=== PATIENT | female | born 1975 | race Caucasian/White ===

== ENCOUNTER 2021-05-12 16:04 | Outpatient (CLI) | payer OTHER, MEDICAID, SELFPAY ==
--- NOTE | ~2021-05-12 | MR_ITS ---
EXAMINATION: MR lumbar spine wo con DATE: 05/12/2021 17:27 INDICATION: Lumbar spinal stenosis. TECHNIQUE: Magnetic resonance imaging (MRI) of the lumbar spine was performed without intravenous con trast. Sequences included sagittal T2-weighted FSE, sagittal STIR FSE, sagittal T1-weighted FSE, and axial T2-weighted FSE. COMPARISON: None FINDINGS: Bone alignment is normal. Vertebral body heights are normal. There is mildly decreased disc height at L3-L4 and L4-L5 with endplate remodeling. There is metal artifact in the pelvis from instr umentation. The distal spinal cord signal intensity is normal. The conus medullaris is at L1. The fol lowing disc levels are specifically discussed: L1-L2: The disc does not extend beyond the endplate margin. There is mild bilateral facet joint osteo arthritis. There is no neural foraminal stenosis. There is no central canal stenosis. L2-L3: The disc is mildly bulging. There is mild bilateral facet joint osteoarthritis. There is mild bilateral neural foraminal stenosis. There is no central canal stenosis. L3-L4: The disc is bulging and has an annular fissure. There is mild bilateral facet joint osteoarthr itis. There is mild bilateral neural foraminal stenosis. There is no central canal stenosis. L4-L5: The disc is bulging. There is moderate bilateral facet joint osteoarthritis. There is moderate bilateral neural foraminal stenosis. There is mild central canal stenosis. L5-S1: The disc does not extend beyond the endplate margin. There is severe right and moderate left f acet joint osteoarthritis. There is mild bilateral neural foraminal stenosis. There is no central can al stenosis. IMPRESSION: 1. Moderate lumbar spondylosis. Reviewed, dictated and finalized at location A.
--- NOTE | ~2021-05-12 | XR_ITS ---
EXAMINATION: XR hip LT min 2V DATE: 05/12/2021 17:44 INDICATION: Left hip pain. TECHNIQUE: 3 views of left hip were obtained. COMPARISON: Sacroiliac joint radiographs 01/19/2017 FINDINGS: Bone alignment is normal. There is an old healed fracture deformity of left innominate bone . There is plate and screw fixation of left iliac wing. There is screw fixation of left acetabulum. T here is screw fixation of right sacroiliac joint. No acute fracture. There is advanced left hip osteo arthritis. There is an intrauterine device in expected position. IMPRESSION: 1. Advanced posttraumatic left hip osteoarthritis. Reviewed, dictated and finalized at location A.
== END 2021-05-12 16:05 | disposition home or self-care (01) ==
PROVIDERS: PCP Internal Medicine; Visit Provider Physical Medicine & Rehabilitation Pain Medicine
DX: M48.061 Spinal stenosis, lumbar region without neurogenic claudication (principal); M47.896 Other spondylosis, lumbar region; M16.12 Unilateral primary osteoarthritis, left hip
CPT/HCPCS: 72148; 73502

== ENCOUNTER 2022-02-04 15:04 | Outpatient (CLI) | payer MEDICARE, MEDICAID, SELFPAY ==
--- NOTE | ~2022-02-04 | XR_ITS ---
EXAMINATION: XR knee LT min 4V, XR knee RT min 4V DATE: 02/04/2022 15:59 INDICATION: Bilateral knee pain with standing and right knee popping. TECHNIQUE: 1. Anteroposterior, 2 oblique and crosstable lateral views of the left knee were obtained. 2. Anteroposterior, 2 oblique and crosstable lateral views of the right knee were obtained. COMPARISON: 12/14/2017 FINDINGS: Alignment is normal at both knees. No fracture. Small to moderate size marginal osteophytes in all 3 compartments of both knees. No evident joint space narrowing although this could be underestimated o n nonweightbearing imaging. No knee joint effusions. Marked asymmetry to the soft tissues at both kne es and proximal calves with morbid obesity with large amount of subcutaneous fat on the left but rela tive paucity of fat on the right with numerous surgical clips suggesting there is related to old trau ma. Prominent heterotopic ossification along the left medial collateral ligament from its femoral joe gin the level of the joint line likely sequela of chronic sprain. IMPRESSION: 1. At least mild tricompartmental osteoarthritis at both knees. No acute osseous abnormality. 2. Renee-Stieda lesion along the proximal left medial collateral ligament consistent with sequel a of chronic sprain. 3. Postoperative changes with multiple surgical clips and prominent asymmetric loss of subcutaneous f at about the right knee and proximal calf likely sequela of old trauma. Correlate with clinical/surgi debbie history. Reviewed, dictated and finalized at location B. IMPRESSION: 1. At least mild tricompartmental osteoarthritis at both knees. No acute osseou s abnormality. 2. Renee-Stieda lesion along the proximal left medial collateral ligament consistent with sequela of chronic sprain. 3. Postoperative changes with multiple surgical clips and prominent asymmetric loss of subcutaneous fat about the right knee and proximal calf likely sequela of old trauma. Correlate with clinical/surgical history.
== END 2022-02-04 15:05 | disposition home or self-care (01) ==
PROVIDERS: PCP Internal Medicine; Visit Provider Physical Medicine & Rehabilitation
DX: M17.0 Bilateral primary osteoarthritis of knee (principal); M76.42 Tibial collateral bursitis [Pellegrini-Stieda], left leg; Z98.890 Other specified postprocedural states
CPT/HCPCS: 73564

== ENCOUNTER → 2023-07-08 11:12 | Outpatient (CLI) | payer MEDICARE, MEDICAID, SELFPAY ==
--- NOTE | ~2023-07-08 | US_ITS ---
EXAMINATION: US pelvic complete w TV DATE: 07/08/2023 12:00 INDICATION: Postmenopausal bleeding Comparison:No prior studies for comparison. TECHNIQUE: Multiple transabdominal and endovaginal sonographic images of the pelvis performed. FINDINGS: The uterus measures 6.9 x 4.5 x 4.9 cm. The endometrial complex measures 1 cm. The right ovary measures 2.4 x 1.7 x 2 cm with normal Doppler signal. Left ovary is not visualized. There is no free fluid in the pelvis. There are no abnormal masses seen on either side. IMPRESSION: 1. Thickened endomtrial complex. The differential diagnosis includes endometrial hyperplasia, polyp a nd carcinoma. Biopsy is recommended. Reviewed, dictated and finalized at location B. IMPRESSION: 1. Thickened endomtrial complex. The differential diagnosis includes endometria l hyperplasia, polyp and carcinoma. Biopsy is recommended.
== END ==
PROVIDERS: Visit Provider Obstetrics & Gynecology
DX: N95.0 Postmenopausal bleeding (principal); N85.00 Endometrial hyperplasia, unspecified
CPT/HCPCS: 76830; 76856

== ENCOUNTER 2023-08-08 10:42 | Outpatient (CLI) | payer MEDICARE, MEDICAID, SELFPAY ==
[2023-08-08 11:31] LABS: Hematocrit 38.6 % (37.0-47.0); Hemoglobin 12.4 g/dL (12.0-15.0); Mean Corpuscular HGB Conc 32.1 g/dl (32-36); Mean Corpuscular Hemoglobin 30.2 pg (26-34); Mean Corpuscular Volume 93.9 fl (80-100); Mean Platelet Volume 12.5 fl (7.4-10.4); Platelet Count Result 279 k/mm3 (150-375); Red Blood Count 4.11 M/mm3 (4.2-5.4); Red Cell Distribution Width 14.5 % (11.5-14.5); White Blood Count 6.5 K/mm3 (4.5-10.0)
[2023-08-08 11:45] LABS: Anion Gap 5 mmol/L (8-16); Blood Urea Nitrogen 20 mg/dL (7-17); Calcium 8.8 mg/dL (8.4-10.2); Carbon Dioxide 28 mmol/L (22-30); Chloride 106 mmol/L (98-107); Estimated Glomerular Filt Rate 53; Glucose 82 mg/dL (65-110); Potassium 3.7 mmol/L (3.4-5.0); Sodium 139 mmol/L (137-145)
== END 2023-08-08 10:43 | disposition home or self-care (01) ==
LOC: ANHSURGERY 10:48
PROVIDERS: Anesthesiology; Visit Provider Obstetrics & Gynecology
DX: N93.9 Abnormal uterine and vaginal bleeding, unspecified (principal); Z79.899 Other long term (current) drug therapy
CPT/HCPCS: 36415; 80048; 85027

== ENCOUNTER 2023-08-11 02:49 | Day surgery (SDC) | payer MEDICARE, MEDICAID, SELFPAY ==
--- NOTE | 2023-08-02 10:18 | SUR.PREOP ---
Report to the Outpatient Waiting Room, entrance under the green pavilion located off [facility], at time 0700 on date 08/11/23. Planned Procedure Time: 0900. Time changes happen often and if your time is changed the preop area will call you the afternoon before. - You and your visitor will be asked to self-screen and do not enter if you have any COVID symptoms. - A mask is optional within the hospital at this time. Patients may have clear liquids (water, carbonated beverages, clear teas, apple juice) until 3 hours prior to surgery with a maximum of 20 ounces. - NO CLEAR LIQUIDS AFTER 0600 - No food from midnight until time of surgery - Infants may have breast milk until 4 hours before surgery, infant formula 6 hours prior to surgery. - Children will be allowed to drink immediately following surgery. If applicable, please bring a bottle or sippy cup to assist with drinking. Juice, water, soda, and popsicles are readily available. For infants on formula, please bring formula the day of surgery. Pacifiers are allowed. Take the following medications with a SIP of water the morning of surgery: HYDROCODONE/ACETAMINOPHEN, LEVOTHYROXINE, PREGABALIN, TIZANIDINE, BRING YOUR ALBUTEROL INHALER WITH YOU THE DAY OF YOUR SURGERY DO NOT STOP ANY OF YOUR OTHER PRESCRIPTION MEDICATIONS PRIOR TO SURGERY ?EXCEPT THE FOLLOWING Medications to discontinue per physician CALL DR STINSON'S OFFICE IN REGARDS TO STOPPING ASPIRIN Please no make-up, nail urdu, hairspray, perfume, deodorant, or body powder the day of surgery. No jewelry (including any body piercings) or valuables the day of surgery, leave them at home. Please take a shower or bath the night before, or the morning of, surgery with an antibacterial soap. Wear comfortable, loose fitting clothing. Children are encouraged to wear pajamas. - Jewelry must be removed prior to entering the operating room. Rings and piercings that are not removed may be cut off. - The hospital will not accept responsibility for valuables. - Please leave all valuables, including medications, at home the day of surgery. If you are going home after surgery, a licensed compressed air pile driver operator must drive you home. - NO public transportation without another adult if you receive anesthesia. - We recommend that an adult stay with you for 24 hours following discharge. - We also recommend that you do not drive, make important decision, drink alcoholic beverages, or take any drugs that were not prescribed by your health care provider for at least 24 hours after your discharge time. For Pediatric surgeries, we recommend two adults accompany the child home. Follow any additional instructions given to you from your surgeon. If you or anyone in your household have experienced Covid symptoms in the past week, please notify your surgeon or the nurse liaison at the phone number below for possible testing. Telephone instructions given to CARMEN CATES and asked if any additional questions and then verbalized understanding. Patient advised to call surgeon office or pre surgery nurse liaison [phone] if any additional questions.
[2023-08-02 10:40] VITALS: BMI 38.7
--- NOTE | 2023-08-10 11:25 | PM.IMHP ---
H&P: HPI History of Present Illness Date/Time: 08/10/23 11:25 47-year-old female presents for evaluation of irregular vaginal bleeding. Had an IUD removed in March, after that began to experience vaginal bleeding. FSH and estradiol showed not definitively menopausal and ultrasound with thickened endometrial cavity in June. Has continuous some bleeding therefore she presents for hysteroscopy uterine curettings. Chief Complaint: Irregular bleeding Review of Systems Review of Systems: All systems reviewed & are unremarkable except as noted in HPI and below PMFSH Past Medical History Medical History Anxiety Arthritis of left knee delivery delivered 1998, 2007 Colonoscopy planned 2021 Encounter for removal of intrauterine contraceptive device Heart burn Hypertension Sacroiliac dysfunction Surgical History Surgical History Gastric bypass status for obesity (~09/2021) H/O gynecological procedure (~03/05/10) Mirena IUD insertion 2009 Mirena IUD removal 2022 H/O skin graft R leg 2014 Family History Family History Father Hypertension Family history of diabetes mellitus in first degree relative Diabetes mellitus Mother Family history of allergic disorder Social History Social History Smoking packs per day: 0.5 Smoking cigarettes per day: 10.0 Years smoked: 15 Smoking pack-years: 7.50 Smoking status: Former smoker Second hand tobacco smoke exposure: No Smoking end date: 09/12/14 Alcohol intake: never Substance use: never Last use: 09/12/2014 Lack of Transportation: No Lack of Food: Sometimes True Current Housing: I Have Housing Concerned About Future Housing: No Difficulty Paying Gas/Electric Bills: YES Difficulty Paying for Meds: No Currently Unemployed: Decline to Answer Education: Associate Degree Difficulty w/ Childcare or Family Care: No Living arrangements: with family Additional living arrangements comments: live with daughter Occupation/Education: unemployed Additional occupation/education comments: disability Gender identity (if verbalized by the patient): Female Sexual Orientation (if Verbalized by the Patient): Straight or Heterosexual Spiritual care concerns: No Meds Home Medications and Allergies Home Medications Medication Instructions Recorded Confirmed Type albuterol sulfate 90 mcg/actuation 2 puff inhalation PRN PRN WHEEZE 03/29/23 08/02/23 History aerosol inhaler aspirin 81 mg tablet,delayed 81 mg PO DAILY 03/29/23 08/02/23 History release fluticasone propionate 50 1 spray intranasal DAILY 03/29/23 08/02/23 History mcg/actuation nasal spray,suspension furosemide 40 mg tablet 40 mg PO QAM 03/29/23 08/02/23 History hydrocodone 10 mg-acetaminophen 1 tablet PO Q4-6H PRN Pain 03/29/23 08/02/23 History 325 mg tablet levothyroxine 75 mcg tablet 75 mcg PO DAILY 03/29/23 08/02/23 History montelukast 10 mg tablet 10 mg PO DAILY 03/29/23 08/02/23 History pregabalin 200 mg capsule 200 mg PO TID 03/29/23 08/02/23 History ropinirole 1 mg tablet 1 mg PO HS 03/29/23 08/02/23 History tizanidine 4 mg tablet 12 mg PO TID 03/29/23 08/02/23 History Allergies Allergy/AdvReac Type Severity Reaction Status Date / Time iodine Allergy Severe Anaphylaxis Verified 08/02/23 09:52 ceftriaxone [From Rocephin] Allergy Intermediate Rash Verified 08/02/23 09:52 nitrofurantoin Allergy Intermediate Rash Verified 08/02/23 09:52 Sulfa (Sulfonamide Allergy Intermediate Rash Verified 08/02/23 09:52 Antibiotics) perflutren lipid microspheres Allergy Severe syncope Uncoded 08/02/23 09:52 Exam Const: General: cooperative and healthy appearing Resp: Effort & Inspection: normal respiratory effort Aus
--- NOTE | 2023-08-11 07:25 | WPDHPUPDATE1 ---
History and Physical Update Update Date/Time: 08/11/23 07:25 History and Physical has been reviewed, including an updated exam of the patient. There are NO changes in the patient's condition. Risks, benefits, and alternatives have been discussed and questions answered. Patient agrees to proceed with procedure.
[2023-08-11 07:55] VITALS: BP 105/54; PULSE 74; RESP 20; TEMP 36.7; O2SAT 98
[2023-08-11] MEDS: LACTATED RINGERS 1,000 ML 30 ML IV CONT (08:55)
--- NOTE | 2023-08-11 09:23 | WPDANESEPPF ---
Anes - Initial Pre Proc Eval Procedure: Operation Date: 08/11/23 09:45 Proposed Procedures p Hysteroscopy Dilation and Curettage - Rajesh Dunbar MD Date/Time: 08/11/23 09:23 Surgeon: Rajesh Dunbar MD Pre Op Diagnosis: abnomal uterine bleeding Patient Data Age: 47 Gender: F Height: 1.66 m Weight: 107 kg Last Vital Signs Temp 36.7 C 08/11/23 07:55 Pulse 74 08/11/23 07:55 Resp 20 08/11/23 07:55 BP 105/54 L 08/11/23 07:55 Pulse Ox 98 08/11/23 07:55 O2 Del Method Room Air 08/11/23 07:55 Allergies Allergy/AdvReac Type Severity Reaction Status Date / Time Iodinated Contrast Media Allergy Severe Anaphylaxis Verified 08/11/23 08:04 ceftriaxone [From Rocephin] Allergy Intermediate Rash Verified 08/02/23 09:52 nitrofurantoin Allergy Intermediate Rash Verified 08/02/23 09:52 Sulfa (Sulfonamide Allergy Intermediate Rash Verified 08/02/23 09:52 Antibiotics) perflutren lipid microspheres Allergy Severe syncope Uncoded 08/02/23 09:52 Home Medications Medication Instructions Recorded Confirmed Type albuterol sulfate 90 mcg/actuation 2 puff inhalation PRN PRN WHEEZE 03/29/23 08/11/23 History aerosol inhaler aspirin 81 mg tablet,delayed 81 mg PO DAILY 03/29/23 08/11/23 History release fluticasone propionate 50 1 spray intranasal DAILY 03/29/23 08/11/23 History mcg/actuation nasal spray,suspension furosemide 40 mg tablet 40 mg PO QAM 03/29/23 08/11/23 History hydrocodone 10 mg-acetaminophen 1 tablet PO Q4-6H PRN Pain 03/29/23 08/11/23 History 325 mg tablet levothyroxine 75 mcg tablet 75 mcg PO DAILY 03/29/23 08/11/23 History montelukast 10 mg tablet 10 mg PO DAILY 03/29/23 08/11/23 History pregabalin 200 mg capsule 200 mg PO TID 03/29/23 08/11/23 History ropinirole 1 mg tablet 1 mg PO HS 03/29/23 08/11/23 History tizanidine 4 mg tablet 12 mg PO TID 03/29/23 08/11/23 History Patient hx anesthesia problems: none Family hx anesthesia problems: none Results Review: All pre-operative results and documents have been reviewed as part of the pre-operative evaluation. [facility] Past Medical History Medical History Anxiety Arthritis of left knee delivery delivered 1998, 2007 Colonoscopy planned 2021 Encounter for removal of intrauterine contraceptive device Heart burn Hypertension Sacroiliac dysfunction Surgical History Surgical History Gastric bypass status for obesity (~09/2021) H/O gynecological procedure (~03/05/10) Mirena IUD insertion 2009 Mirena IUD removal 2022 H/O skin graft R leg 2014 Family History Family History Father Hypertension Family history of diabetes mellitus in first degree relative Diabetes mellitus Mother Family history of allergic disorder Social History Social History Smoking packs per day: 0.5 Smoking cigarettes per day: 10.0 Years smoked: 15 Smoking pack-years: 7.50 Smoking status: Former smoker Second hand tobacco smoke exposure: No Smoking end date: 09/12/14 Alcohol intake: never Substance use: never Last use: 09/12/2014 Lack of Transportation: No Lack of Food: Sometimes True Current Housing: I Have Housing Concerned About Future Housing: No Difficulty Paying Gas/Electric Bills: YES Difficulty Paying for Meds: No Currently Unemployed: Decline to Answer Education: Associate Degree Difficulty w/ Childcare or Family Care: No Living arrangements: with family Additional living arrangements comments: live with daughter Occupation/Education: unemployed Additional occupation/education comments: disability Gender identity (if verbalized by the patient): Female Sexual Orientation (if Verbalized by the Patient): Straight or Heterosexual Sp
--- NOTE | 2023-08-11 09:56 | W.PM.PROC2 ---
Procedure Note - Detailed Date of Procedure 08/11/23 Pre-op Diagnosis abnomal uterine bleeding Post-op Diagnosis Same Procedure Performed 1. Hysteroscopy with uterine curettings Surgeon Rajesh Dunbar MD Anesthesia MAC Findings Mildly thickened endometrial cavity, no hypervascularity, no polyps or fibroids. Description of Procedure Patient prepped and draped usual manner for this procedure. Cervix was dilated to allow the hysteroscope be placed which revealed findings as above. Curettings were obtained with no significant abnormality and minimal tissue noted. There was no significant bleeding at this point the procedure was considered terminated. Estimated Blood Loss 10 Drains No Packing No Pathology Yes Complications No immediate complications Condition Stable Disposition PACU [facility] Billing Surgery - Charge Forward: Surgery Billing
[2023-08-11 10:02] VITALS: BP 99/52; PULSE 71; RESP 14; O2SAT 96
[2023-08-11 10:30] VITALS: BP 106/60; RESP 20
[2023-08-11 11:00] VITALS: BP 104/60; PULSE 60; RESP 20
== END 2023-08-11 11:15 | disposition home or self-care (01) ==
PROVIDERS: Visit Provider Obstetrics & Gynecology
PROC: 0U5B8ZZ Destruction of Endometrium, Via Natural or Artificial Opening Endoscopic (ICD-10-PCS; CPT 58563; principal; 2023-08-11 09:45)
DX: N93.9 Abnormal uterine and vaginal bleeding, unspecified (principal); I10 Essential (primary) hypertension; Z79.51 Long term (current) use of inhaled steroids; Z79.82 Long term (current) use of aspirin; Z98.84 Bariatric surgery status; Z87.891 Personal history of nicotine dependence; E66.9 Obesity, unspecified; Z68.38 Body mass index [BMI] 38.0-38.9, adult
CPT/HCPCS: 58558; 88305; J2250; J2405; J2704; J3010; J7120

== ENCOUNTER 2023-09-29 16:52 | Outpatient (CLI) | payer MEDICARE, MEDICAID, SELFPAY ==
--- NOTE | ~2023-09-29 | MR_ITS ---
EXAMINATION: MR lumbar spine wo con DATE: 09/29/2023 18:17 INDICATION: Lumbar radiculopathy TECHNIQUE: Magnetic resonance imaging (MRI) of the lumbar spine was performed without intravenous con trast. Sequences included sagittal T2-weighted FSE, sagittal T2-weighted FS FSE, sagittal T1-weighted FSE, sagittal fluid sensitive FSE STIR and axial T2-weighted FSE. COMPARISON: Lumbar spine MR dated 05/12/2021 and left hip radiographs dated 05/12/2021 FINDINGS: There is metallic magnetic field artifact associated with a screw spanning the right sacroiliac joint and with plain screw fixation along the visualized medial portion of the left innominate bone. Align ment of the lumbar spine is normal.. Vertebral body heights are normal. Normal marrow signal. Mild d isc height loss at L2-L3 and L5-S1 and mild to moderate disc height loss at L3-L4 and L4-L5. The conu s medullaris terminates at L1. There is normal signal in the caudal spinal cord. There is increasing asymmetric atrophy of the right psoas muscle relative to the left. The following disc levels are spec ifically discussed: T12-L1: The disc does not extend beyond the endplate margin. There is mild bilateral facet joint oste oarthritis. There is no neural foraminal stenosis. There is no central canal stenosis. L1-L2: Disc is mildly bulging. There is mild bilateral facet joint osteoarthritis. There is no neural foraminal stenosis. There is no central canal stenosis. L2-L3: Disc is mildly bulging. There is mild bilateral facet joint osteoarthritis. There is mild bila teral neural foraminal stenosis. There is mild central canal stenosis. L3-L4: Disc is mildly bulging with superimposed left foraminal zone annular fissure. There is mild bi lateral facet joint osteoarthritis. There is mild bilateral neural foraminal stenosis. There is mild central canal stenosis. L4-L5: Disc is bulging. There is moderate bilateral facet joint osteoarthritis. There is moderate paula ateral neural foraminal stenosis. There is mild central canal stenosis. L5-S1: Disc is mildly bulging. There is severe right and moderate left facet joint osteoarthritis. Th ere is mild bilateral neural foraminal stenosis. There is no central canal stenosis. IMPRESSION: 1. Slight interval progression in moderate lumbar spondylosis. 2. Asymmetric muscular atrophy of the right psoas muscle. Reviewed, dictated and finalized at location A. [employer]
== END 2023-09-29 16:53 | disposition home or self-care (01) ==
PROVIDERS: Visit Provider Physical Medicine & Rehabilitation
DX: M47.26 Other spondylosis with radiculopathy, lumbar region (principal)
CPT/HCPCS: 72148

== ENCOUNTER 2024-01-09 15:43 | Outpatient (CLI) | payer MEDICARE, MEDICAID, SELFPAY ==
--- NOTE | ~2024-01-09 | XR_ITS ---
EXAM: XR pelvis min 3V DATE: 01/09/2024 16:36 HISTORY: SACROLITIITIS, HX OF SEVERE PELVIC FX AND SURG . COMPARISON: 05/12/2021 and 01/19/2017. FINDINGS: Decreased mineralization. Screw and plate fixation of the left iliac bone. Screw fixation of the left acetabulum acetabulum. Screw fixation of the right sacroiliac joint. Normal left SI joint . Stable gastric in the left ischial trochanter. Severe bilateral degenerative change in the hips, gr eater on the left. IMPRESSION: Status post hardware fusion of the right SI joint. Normal left SI joint. Extensive lung, located appearing pelvic hardware. Severe bilateral hip osteoarthritis, worse on the left. Reviewed, dictated and finalized at location K. IMPRESSION: Status post hardware fusion of the right SI joint. Normal left SI j oint. Extensive lung, located appearing pelvic hardware. Severe bilateral hip o steoarthritis, worse on the left.
--- NOTE | ~2024-01-09 | CT_ITS ---
EXAMINATION: CT thoracic spine wo con DATE: 01/09/2024 16:22 INDICATION: Lead placement. TECHNIQUE: Computed tomography (CT) of the thoracic spine was performed without intravenous contrast. Automated exposure control and iterative reconstruction technique were employed. The dose-length pro duct was 779.86 mGy-cm. COMPARISON: None FINDINGS: There are surgical changes of the stomach. There is a small sliding hiatal hernia. There is 3 degrees levocurvature of the upper thoracic spine. Vertebral body heights are normal. There is mil dly decreased disc height at T3-T4, moderately decreased disc height from T4-T5 through T6-T7, and mi ldly decreased disc height from T7-T8 through T10-T11. There is multilevel lidg-bb-jpivjscy facet emili nt osteoarthritis. There is severe facet joint osteoarthritis on the left at T2-T3. On the left, ther e is mild neural foraminal stenosis at T2-T3. There is no central canal stenosis. IMPRESSION: 1. Moderate thoracic spondylosis. Reviewed, dictated and finalized at location A.
== END 2024-01-09 15:44 | disposition home or self-care (01) ==
PROVIDERS: Visit Provider Physical Medicine & Rehabilitation Pain Medicine
DX: M46.1 Sacroiliitis, not elsewhere classified (principal); M54.50 Low back pain, unspecified; M47.894 Other spondylosis, thoracic region; Z98.1 Arthrodesis status
CPT/HCPCS: 72128; 72190

== ENCOUNTER 2024-01-26 11:34 | Outpatient (CLI) | payer MEDICARE, MEDICAID, SELFPAY ==
--- NOTE | ~2024-01-26 | CT_ITS ---
EXAMINATION: CT pelvis wo con DATE: 01/26/2024 12:10 INDICATION: Sacroiliitis, not elsewhere classified. TECHNIQUE: Computed tomography (CT) of the pelvis was performed without intravenous contrast. Automat ed exposure control and iterative reconstruction technique were employed. The dose-length product was 818.27 mGy-cm. COMPARISON: Pelvis radiograph 01/09/2024 FINDINGS: There are old fractures of the right L5 transverse process, left pelvic bones, and sacrum. There is fixation of left ilium with plates and screws. There are changes of arthrodesis procedure of right sacroiliac joint with a lag screw. There is bridging ossification at the sacroiliac joints. Th ere is advanced osteoarthritis of the hip joints. Osteitis pubis is noted. No acute fracture. IMPRESSION: 1. Ankylosis of the sacroiliac joints. 2. Advanced osteoarthritis of the hips. Reviewed, dictated and finalized at location E.
== END 2024-01-26 11:35 | disposition home or self-care (01) ==
PROVIDERS: Visit Provider Physical Medicine & Rehabilitation Pain Medicine
DX: M46.1 Sacroiliitis, not elsewhere classified (principal)
CPT/HCPCS: 72192

== ENCOUNTER 2024-03-26 15:02 | Outpatient (CLI) | payer MEDICARE, MEDICAID, SELFPAY ==
--- NOTE | ~2024-03-26 | XR_ITS ---
EXAM: XR shoulder LT min 2V DATE: 03/26/2024 15:33 HISTORY: SHOULDER PAIN, LT . COMPARISON: None available. FINDINGS: Normal mineralization. No fracture or dislocation. No lytic or blastic lesion. Moderate de generative change at the AC joint and glenohumeral joint. No erosion or periosteal change. Soft tissu es within normal limits. 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 Reviewed, dictated and finalized at location K.
--- NOTE | ~2024-03-26 | XR_ITS ---
EXAM: XR shoulder RT min 2V DATE: 03/26/2024 15:33 HISTORY: SHOULDER PAIN, RT . COMPARISON: None available. FINDINGS: Normal mineralization. No fracture or dislocation. No lytic or blastic lesion. Mild degene rative change at the AC joint and glenohumeral joint. No erosion or periosteal change. Soft tissues w ithin normal limits. IMPRESSION: Mild polyarticular osteoarthritis of the right shoulder. Reviewed, dictated and finalized at location K.
== END 2024-03-26 15:03 | disposition home or self-care (01) ==
LOC: ANHIMG 15:08
PROVIDERS: Visit Provider Physical Medicine & Rehabilitation Pain Medicine
DX: M19.012 Primary osteoarthritis, left shoulder (principal); M19.011 Primary osteoarthritis, right shoulder
CPT/HCPCS: 73030

== ENCOUNTER 2024-06-11 12:16 | Outpatient (CLI) | payer MEDICARE, MEDICAID, SELFPAY ==
--- NOTE | ~2024-06-11 | XR_ITS ---
Right Knee Technique: AP, lateral, and sunrise views were obtained. Clinical History: Pain Findings: No fracture or dislocation is seen. Osseous alignment is anatomic. Mild degenerative spurri ng noted. Probable lateral compartment narrowing. Soft tissues are unremarkable. No joint effusion is seen. Impression: Degenerative change, as above. Reviewed, dictated and finalized at location . Impression: Degenerative change, as above.
--- NOTE | ~2024-06-11 | XR_ITS ---
Left Knee Technique: AP, lateral, and sunrise views were obtained. Clinical History: Pain COMPARISON: 02/04/2022 Findings: No fracture or dislocation is seen. Osseous alignment is anatomic. Joint spaces are preserv ed without degenerative or erosive change. Chronic heterotopic ossification along the medial aspect o f the distal femur extending towards the joint line is present. Possible bone infarct of the distal f emur. No joint effusion is seen. Impression: No acute abnormality. Stable chronic heterotopic ossification along the medial femoral condyle extending to the medial join t line. Possible bone infarct of the distal femur. Reviewed, dictated and finalized at location . Impression: No acute abnormality. Stable chronic heterotopic ossification along the medial femoral condyle extend ing to the medial joint line. Possible bone infarct of the distal femur.
== END 2024-06-11 12:17 | disposition home or self-care (01) ==
PROVIDERS: Visit Provider Physical Medicine & Rehabilitation Pain Medicine
DX: M17.11 Unilateral primary osteoarthritis, right knee (principal); G89.29 Other chronic pain
CPT/HCPCS: 73564

== ENCOUNTER 2024-09-24 09:15 | Inpatient (IN) | payer MEDICARE, MEDICAID, SELFPAY ==
[2024-09-24] VITALS (19 sets, daily range): BP systolic 71–130; BP diastolic 52–75; PULSE 73–127; RESP 13–24; TEMP 36.8; O2SAT 85–98; BMI 36.7
--- NOTE | ~2024-09-24 | XR_ITS ---
XR chest 1V Ordering provider: Dhiraj Burroughs MD History: 48 years Female with . weakness . Comparison: June 10, 2012 FINDINGS: MEDIASTINUM: The cardiac silhouette is not enlarged. LUNGS: No effusions or pneumothorax. Opacification in the right lower lobe suggestive OTHER: No free air under the diaphragm. IMPRESSION: Right lower lobe pneumonia. Reviewed, dictated and finalized at location A. RATORY SECRETARY IMPRESSION: Right lower lobe pneumonia.
--- NOTE | ~2024-09-24 | US_ITS ---
EXAMINATION: US venous doppler [facility] DATE: 09/24/2024 22:59 INDICATION: Left leg pain and induration TECHNIQUE: Grayscale ultrasound images without and with compression and Doppler ultrasound images of the left lower extremity veins were obtained. COMPARISON: None. FINDINGS: The visualized portions of left common femoral vein, profunda (deep) femoral vein, femoral vein and g reater saphenous vein outflow are patent. The popliteal vein, peroneal vein, posterior tibial vein and gastrocnemius vein were not visualized s econdary to significant edema and induration IMPRESSION: No deep venous thrombosis within the left common femoral, profunda femoral and femoral veins, as deta iled above. Limited evaluation below the knee secondary to significant induration and soft tissue swelling. Reviewed, dictated and finalized at location A. FURNISHINGS SALES REPRESENTATIVE IMPRESSION: No deep venous thrombosis within the left common femoral, profunda femoral and femoral veins, as detailed above. Limited evaluation below the knee secondary to significant induration and soft tissue swelling.
--- NOTE | ~2024-09-24 | CT_ITS ---
EXAMINATION: CT brain wo con DATE: 09/24/2024 10:55 INDICATION: Confusion TECHNIQUE: Computed tomography (CT) of the head was performed without intravenous contrast. Sagittal and coronal reconstructions were performed. The mA was adjusted according to patient size. Iterative reconstruction technique was employed. The dose-length product was 605.33 mGy-cm. COMPARISON: Sinus CT dated 09/14/2013 FINDINGS: No acute intracranial hemorrhage, acute infarction or abnormal extra axial fluid collection. Ventricl es are normal and symmetric. No mass/mass effect. There is essentially complete opacification of the visualized portions of the right maxillary sinus which demonstrates thickened sclerotic roca consist ent with chronic sinusitis. The orbits and mastoid air cells are normal. 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 IMPRESSION: 1. No acute intracranial process. 2. Chronic right maxillary sinusitis. Reviewed, dictated and finalized at location B. IT ANALYSIS MANAGER
--- NOTE | ~2024-09-24 | US_ITS ---
EXAM: ABDOMEN ULTRASOUND HISTORY: elevated LFTs COMPARISON: None FINDINGS: LIVER: The liver is increased in echogenicity and size measuring 20 cm in longitudinal dimension. The portal vein is patent demonstrating hepatopedal flow GALLBLADDER: The gallbladder is surgically absent. BILE DUCTS: Common bile duct measures anywhere from 5 to 8 cm. PANCREAS: Limited evaluation of the pancreas secondary to overlying bowel gas IMPRESSION: Fatty infiltration of an enlarged liver. Postoperative dilatation of the common bile duct, not unexpected, as detailed above Reviewed, dictated and finalized at location A. STAMPER IMPRESSION: Fatty infiltration of an enlarged liver. Postoperative dilatation of the common bile duct, not unexpected, as detailed a kalyn
--- NOTE | 2024-09-24 09:19 | ECG_ITS ---
Test Date: 2024-09-24 09:23:00 Measurements Intervals [place] Rate: 109 P: 151 IN: 154 QRS: 109 QRSD: 103 T: 150 QT: 331 QTc: 447 Interpretive Statements SINUS TACHYCARDIA MARKED RIGHT AXIS DEVIATION [QRS AXIS > 100] LOW QRS VOLTAGE IN EXTREMITY LEADS [QRS DEFLECTION < 0.5 mV IN LIMB LEADS] No previous ECG available for comparison Electronically Signed On 09-24-2024 21:51:07 [employer] by Stephany Vazquez M.D.
--- NOTE | 2024-09-24 09:24 | PC.NURSE ---
Patient 85% on RA. patient states she does not feel SOB and does not wear oxygen at home. patient placed on 3L NC.
--- NOTE | 2024-09-24 10:17 | ED.WEAKNESS ---
HPI - Weakness General Chief complaint: Weakness Stated complaint: weakness Time Seen by Provider: 09/24/24 10:15 Source: patient Mode of arrival: EMS Limitations: no limitations History of Present Illness HPI Narrative: 48 YEARS OLD WHITE FEMALE CAME TO THE ED FROM HOME BY AMBULANCE BECAUSE OF FEELING WEAK ALL OVER TODAY. UNABLE TO STAND UP OR WALK BECAUSE OF THE WEAKNESS. PATIENT SCHEDULED TO BE SEEN BY SPINE SURGEON TODAY FOR BACK STIMULATOR AT [place], COULD NOT MAKE IT. SHE DENIES ANY FEVER, CHILLS, NAUSEA, VOMITING, CHEST PAIN, SHORTNESS OF BREATH OR ABDOMINAL PAIN. HISTORY OF HYPOTHYROIDISM, CHRONIC LOWER BACK PAIN, CURRENTLY AND TIZANIDINE, GABAPENTIN, HYDROCODONE 10 MG EVERY 4 HOURS NEEDED. PATIENT DOES SMOKE CIGARETTES, DENIES DRINKING ALCOHOL OR DRUG USE. HISTORY OF EDEMA LOWER EXTREMITY, ON COMPRESSION STOCKING, HISTORY OF RECURRENT CELLULITIS OF THE LEGS. Related Data Home Medications ?Medication ?Instructions ?Recorded ?Confirmed ?Last Taken ?Type albuterol sulfate 90 mcg/actuation 2 puff inhalation PRN PRN WHEEZE 03/29/23 09/14/23 08/11/23 05:30 History aerosol inhaler aspirin 81 mg tablet,delayed 81 mg PO DAILY 03/29/23 09/14/23 08/10/23 History release fluticasone propionate 50 1 spray intranasal DAILY 03/29/23 09/14/23 08/10/23 History mcg/actuation nasal spray,suspension furosemide 40 mg tablet 40 mg PO QAM 03/29/23 09/14/23 08/10/23 History hydrocodone 10 mg-acetaminophen 1 tablet PO Q4-6H PRN Pain 03/29/23 09/14/23 08/11/23 06:30 History 325 mg tablet levothyroxine 75 mcg tablet 75 mcg PO DAILY 03/29/23 09/14/23 08/11/23 06:30 History montelukast 10 mg tablet 10 mg PO DAILY 03/29/23 09/14/23 08/10/23 History pregabalin 200 mg capsule 200 mg PO TID 03/29/23 09/14/23 08/11/23 06:30 History ropinirole 1 mg tablet 1 mg PO HS 03/29/23 09/14/23 08/10/23 History tizanidine 4 mg tablet 12 mg PO TID 03/29/23 09/14/23 08/11/23 06:30 History Allergies Allergy/AdvReac Type Severity Reaction Status Date / Time Iodinated Contrast Media Allergy Severe Anaphylaxis Verified 09/24/24 09:25 ceftriaxone (From Rocephin) Allergy Intermediate Rash Verified 09/14/23 10:42 nitrofurantoin Allergy Intermediate Rash Verified 09/14/23 10:42 Sulfa (Sulfonamide Allergy Intermediate Rash Verified 09/14/23 10:42 Antibiotics) perflutren lipid microspheres Allergy Severe syncope Uncoded 09/14/23 10:42 Review of Systems Review of Systems: All systems reviewed & are unremarkable except as noted in HPI and below PMFSH Past Medical History Medical History Encounter for removal of intrauterine contraceptive device delivery delivered 1998, 2007 Colonoscopy planned 2021 Sacroiliac dysfunction Arthritis of left knee Hypertension Heart burn Anxiety Surgical History Surgical History History of hysteroscopy (08/11/23) Hscope D&C , Benign tissue H/O skin graft R leg 2014 Gastric bypass status for obesity (~09/2021) H/O gynecological procedure (~03/05/10) Mirena IUD insertion 2009 Mirena IUD removal 2022 Family History Family History Father Hypertension Family history of diabetes mellitus in first degree relative Diabetes mellitus Mother Family history of allergic disorder Social History Social History Smoking packs per day: 0.5 Smoking cigarettes per day: 10.0 Years smoked: 15 Smoking pack-years: 7.50 Smoking status: Former smoker Second hand tobacco smoke exposure: No Smoking end date: 09/12/14 Alcohol intake: never Substance use: never Last use: 09/12/2014 Lack of Transportation: No Lack of Food: Sometimes True Current Housing: I Have Housing Concerned About Future Housing: No Difficulty Paying Gas/Electric Bills: YES Difficulty Paying for Meds: No Currently Unemployed: Decline to Answer Education: Associate Degree Difficulty w/ Childcare or Family Care: No Living arrangements: with family Additional living arrangements comments: live with daughter Occupation/Education: unemployed Additional occupation/education comments: disability Gender identity (if verbalized by the patient): Female Sexual Orientation (if Verbalized by the Patient): Straight or Heterosexual Spiritual care concerns: No Exam Narrative: GENERAL APPEARANCE: WELL-DEVELOPED, WELL-NOURISHED SKIN: NORMAL COLOR, EXTENSIVE ERYTHEMA OF THE LEFT LOWER LEG UP TO THE MIDTHIGH WARM, TENDER HEAD: NORMOCEPHALIC, NONTRAUMATIC EYES: CLEAR CONJUNCTIVA ENT: OROPHARYNX NORMAL, EARS NORMAL, NOSE NORMAL NECK: SUPPLE, NONTENDER CHEST AND RESPIRATORY: AIRWAY PATENT, NO RESPIRATORY DISTRESS, NO ACCESSORY MUSCLE USE HEART: REGULAR RATE/RHYTHM ABDOMEN: SOFT, NONTENDER, NO ORGANOMEGALY, QUIET BOWEL SOUNDS VASCULAR: NORMAL PERIPHERAL PULSES, NORMAL CAPILLARY REFILL. MUSCULOSKELETAL: NORMAL RANGE OF MOTION, NONTENDER BACK NEUROLOGIC: ALERT AND ORIENTED ?3, HOP TRAINER IS NORMAL TESTED, NO GROSS MOTOR DEFICIT Course Vital Signs Vital signs: Vital Signs Temperature 36.8 C 09/24/24 09:15 Pulse Rate 116 H 09/24/24 09:15 Respiratory Rate 16 09/24/24 09:15 Blood Pressure 103/56 L 09/24/24 09:15 Pulse Oximetry 85 L 09/24/24 09:15 Oxygen Delivery Room Air 09/24/24 09:15 Temperature 36.8 C 09/24/24 09:15 Pulse Rate 103 H 09/24/24 12:00 Respiratory Rate 14 09/24/24 12:00 Blood Pressure 105/52 L 09/24/24 12:00 Pulse Oximetry 92 09/24/24 12:00 Oxygen Delivery Nasal Cannula 09/24/24 09:23 Oxygen Flow Rate 3 09/24/24 09:23 MDM - Weakness MDM Narrative Medical decision making narrative: PATIENT CAME TO THE ED WITH GENERAL WEAKNESS VITAL SIGN SHOWING BLOOD PRESSURE 103/56, HEART RATE 116 BEATS PER MINUTE, OTHERWISE INSIGNIFICANT PHYSICAL EXAMINATION SHOWING CELLULITIS LEFT LOWER EXTREMITY, SLEEPY, LETHARGIC PATIENT WITH HYPOXIA DIFFERENTIAL DIAGNOSIS INCLUDE CELLULITIS, PNEUMONIA, UPPER RESPIRATORY VIRAL INFECTION, ELECTROLYTE IMBALANCE, DEHYDRATION, NARCOTIC OVERDOSE BLOOD WORKUP TODAY SHOWED WBC 10.2, CREATININE 1.1, ELEVATED LIVER ENZYMES 129, 86, 207 URINALYSIS SHOWED NO EVIDENCE OF INFECTION CHEST X-RAY SHOWED RIGHT LOWER LOBE PNEUMONIA, CT HEAD WITHOUT CONTRAST SHOWED NO ACUTE ABNORMALITIES Differential Diagnosis Differential diagnosis: Likely other ( ABOVE) Lab Data 09/24/24 11:37 09/24/24 10:41 Labs: Lab Results 09/24/24 09/24/24 09/24/24 Range/Units 10:41 11:37 12:58 WBC 10.2 H (4.5-10.0) K/mm3 RBC 4.12 L (4.2-5.4) M/mm3 Hgb 12.4 (12.0-15.0) g/dL Hct 38.8 (37.0-47.0) % MCV 94.2 (80-100) fl MCH 30.1 (26-34) pg MCHC 32.0 (32-36) g/dl RDW 13.2 (11.5-14.5) % Plt Count 196 (150-375) k/mm3 MPV 12.3 H (7.4-10.4) fl Immature Gran % (Auto) 0.5 (0-0.5) % Neut % (Auto) 89.2 H (45.5-73.1) % Lymph % (Auto) 5.3 L (18.3-44.2) % [place] % (Auto) 4.8 (2.6-8.5) % Eos % (Auto) 0.0 (0-4.4) % Baso % (Auto) 0.2 (0.2-1.2) % Lymph # (Auto) 0.54 L (0.9-3.2) K/mm3 [place] # (Auto) 0.5 (0.1-0.6) K/mm3 Eos # (Auto) 0.0 (0-0.3) K/mm3 Baso # (Auto) 0.0 (0.0-0.1) K/mm3 Abs Immat Gran (auto) 0.05 H (0.00-0.031) K/mm3 Absolute Neuts (auto) 9.1 H (1.3-6.7) K/mm3 Absolute Nucleated RBC 0.000 (0.0-0.012) K/mm3 Nucleated RBC % 0.0 (0.0-0.2) % PT 13.7 (11.1-14.7) Seconds INR 1.0 APTT 31.6 (22.3-36.8) Seconds Sodium 138 (137-145) mmol/L Potassium 3.9 (3.4-5.0) mmol/L Chloride 102 (98-107) mmol/L Carbon Dioxide 31 H (22-30) mmol/L Anion Gap 5 (4-12) mmol/L BUN 32 H D (7-17) mg/dL Creatinine 1.12 H (0.7-1.0) mg/dL Estim Creat Clear Calc 66 ml/min Estimated GFR 52 L (59 - ) Glucose 92 (65-110) mg/dL Calcium 8.7 (8.4-10.2) mg/dL Total Bilirubin 1.6 H (0.2-1.3) mg/dL AST 129 H (14-36) U/L ALT 86 H (6-35) U/L Alkaline Phosphatase 207 H (38-126) U/L Total Creatine Kinase 38 (30-135) U/L C-Reactive Protein 7.9 H (<1.0) mg/dL Total Protein 7.0 (6.3-8.2) g/dL Albumin 3.5 (3.5-5.1) g/dL Urine Color Dark yellow (Yellow) Urine Appearance Cloudy H (Clear) Urine pH 5.5 (5.0-9.0) Ur Specific [place] 1.025 (1.001-1.035) Urine Protein 1+ H (Negative) mg/dL Urine Glucose (UA) Negative (Negative) mg/dL Urine Ketones Trace H (Negative) mg/dL Ur Blood (Man) Negative (Negative) Urine Nitrate Negative (Negative) Urine Bilirubin 1+ H (Negative) Urine Urobilinogen 1.0 (<2.0) mg/dL Leukocyte Esterase Rfl Negative (Negative) KATELYNN/UL Urine RBC 3-5 H (0-2) /hpf Urine WBC 0-5 (0-3) /hpf Ur Squamous Epith Cells Few (Few) /hpf Calcium Oxalate Crystal Present (None) /hpf Urine Bacteria Rare /hpf Urine Casts 11-20 Nasal MRSA (PCR) Urine Opiates Screen Positive A (Negative) Urine Methadone Screen Negative (Negative) Ur Barbiturates Screen Negative (Negative) Ur Phencyclidine Scrn Negative (Negative) Ur Amphetamine Screen Negative (Negative) U Benzodiazepines Scrn Negative (Negative) Urine Cocaine Screen Negative (Negative) U Cannabinoids Screen Negative (Negative) Ethyl Alcohol < 10 (<10) mg/dL Influenza A (RT-PCR) Influenza B (RT-PCR) RSV (RT-PCR) SARS-CoV-2 RNA (RT-PCR) 09/24/24 Range/Units 14:50 WBC (4.5-10.0) K/mm3 RBC (4.2-5.4) M/mm3 Hgb (12.0-15.0) g/dL Hct (37.0-47.0) % MCV (80-100) fl MCH (26-34) pg MCHC (32-36) g/dl RDW (11.5-14.5) % Plt Count (150-375) k/mm3 MPV (7.4-10.4) fl Immature Gran % (Auto) (0-0.5) % Neut % (Auto) (45.5-73.1) % Lymph % (Auto) (18.3-44.2) % [place] % (Auto) (2.6-8.5) % Eos % (Auto) (0-4.4) % Baso % (Auto) (0.2-1.2) % Lymph # (Auto) (0.9-3.2) K/mm3 [place] # (Auto) (0.1-0.6) K/mm3 Eos # (Auto) (0-0.3) K/mm3 Baso # (Auto) (0.0-0.1) K/mm3 Abs Immat Gran (auto) (0.00-0.031) K/mm3 Absolute Neuts (auto) (1.3-6.7) K/mm3 Absolute Nucleated RBC (0.0-0.012) K/mm3 Nucleated RBC % (0.0-0.2) % PT (11.1-14.7) Seconds INR APTT (22.3-36.8) Seconds Sodium (137-145) mmol/L Potassium (3.4-5.0) mmol/L Chloride (98-107) mmol/L Carbon Dioxide (22-30) mmol/L Anion Gap (4-12) mmol/L BUN (7-17) mg/dL Creatinine (0.7-1.0) mg/dL Estim Creat Clear Calc ml/min Estimated GFR (59 - ) Glucose (65-110) mg/dL Calcium (8.4-10.2) mg/dL Total Bilirubin (0.2-1.3) mg/dL AST (14-36) U/L ALT (6-35) U/L Alkaline Phosphatase (38-126) U/L Total Creatine Kinase (30-135) U/L C-Reactive Protein (<1.0) mg/dL Total Protein (6.3-8.2) g/dL Albumin (3.5-5.1) g/dL Urine Color (Yellow) Urine Appearance (Clear) Urine pH (5.0-9.0) Ur Specific [place] (1.001-1.035) Urine Protein (Negative) mg/dL Urine Glucose (UA) (Negative) mg/dL Urine Ketones (Negative) mg/dL Ur Blood (Man) (Negative) Urine Nitrate (Negative) Urine Bilirubin (Negative) Urine Urobilinogen (<2.0) mg/dL Leukocyte Esterase Rfl (Negative) KATELYNN/UL Urine RBC (0-2) /hpf Urine WBC (0-3) /hpf Ur Squamous Epith Cells (Few) /hpf Calcium Oxalate Crystal (None) /hpf Urine Bacteria /hpf Urine Casts Nasal MRSA (PCR) Pending Urine Opiates Screen (Negative) Urine Methadone Screen (Negative) Ur Barbiturates Screen (Negative) Ur Phencyclidine Scrn (Negative) Ur Amphetamine Screen (Negative) U Benzodiazepines Scrn (Negative) Urine Cocaine Screen (Negative) U Cannabinoids Screen (Negative) Ethyl Alcohol (<10) mg/dL Influenza A (RT-PCR) Pending Influenza B (RT-PCR) Pending RSV (RT-PCR) Pending SARS-CoV-2 RNA (RT-PCR) Pending Imaging Data Radiologist's impression: Impressions Head CT 09/24/24 10:56 IMPRESSION: 1. No acute intracranial process. 2. Chronic right maxillary sinusitis. Chest X-Ray 09/24/24 11:06 IMPRESSION: Right lower lobe pneumonia. ECG Data EKG #1: Attestation: I personally reviewed and interpreted this ECG as follows: ECG completion date: 09/24/24 Interpretation: SINUS TACHYCARDIA AT 109 BEATS PER MINUTE, POOR R-WAVE PROGRESSION, SEPTAL MYOCARDIAL INFARCTION OF INDETERMINATE AGE, LOW QRS VOLTAGE, NO PREVIOUS EKG AVAILABLE FOR COMPARISON Critical Care Time Critical Care Time Critical Care Time: No Discharge Plan Discharge Clinical Impression: Pneumonia, Cellulitis of left leg Patient Disposition: Still a Patient Condition: Stable Additional Instructions: Admit to hospitalist Patient Language: Occitan Prescriptions: No Action pregabalin 200 mg capsule 200 mg PO TID hydrocodone-acetaminophen 10-325 mg tablet 1 tablet PO Q4-6H PRN (Reason: Pain) ropinirole 1 mg tablet 1 mg PO HS tizanidine 4 mg tablet 12 mg PO TID montelukast 10 mg tablet 10 mg PO DAILY fluticasone propionate 50 mcg/actuation spray,suspension 1 spray intranasal DAILY aspirin 81 mg tablet,delayed release (DR/EC) 81 mg PO DAILY albuterol sulfate 90 mcg/actuation HFA aerosol inhaler 2 puff inhalation PRN PRN (Reason: WHEEZE) levothyroxine 75 mcg tablet 75 mcg PO DAILY furosemide 40 mg tablet 40 mg PO QAM progesterone micronized [Prometrium] 200 mg capsule 200 mg PO QHS 90 Days Qty: 90 3RF Follow-up/Referrals: [facility] [Other]
[2024-09-24] MEDS: SODIUM CHLORIDE 0.9% IV 1,000 ML 999 ML IV CONT ×3 (10:40→18:21)
[2024-09-24 10:59] LABS: Alanine Aminotransferase 86 U/L (6-35); Albumin Level 3.5 g/dL (3.5-5.1); Alkaline Phosphatase 207 U/L (38-126); Anion Gap 5 mmol/L (4-12); Aspartate Amino Transferase 129 U/L (14-36); Bilirubin,Total 1.6 mg/dL (0.2-1.3); Blood Urea Nitrogen 32 mg/dL (7-17); Calcium 8.7 mg/dL (8.4-10.2); Carbon Dioxide 31 mmol/L (22-30); Chloride 102 mmol/L (98-107); Creatine Kinase 38 U/L (30-135); Estimated CRCL calculation 66 ml/min; Estimated Glomerular Filt Rate 52; Glucose 92 mg/dL (65-110); Potassium 3.9 mmol/L (3.4-5.0); Sodium 138 mmol/L (137-145)
[2024-09-24 11:05] LABS: Ethanol < 10 mg/dL (<10)
[2024-09-24 11:15] LABS: Prothrombin Time 13.7 Seconds (11.1-14.7)
[2024-09-24 11:16] LABS: Partial Thromboplastin Time 31.6 Seconds (22.3-36.8)
[2024-09-24 11:42] LABS: Basophils Percent Auto 0.2 % (0.2-1.2); Hematocrit 38.8 % (37.0-47.0); Hemoglobin 12.4 g/dL (12.0-15.0); Immature Granulocyte Absolute 0.05 K/mm3 (0.00-0.031); Immature Granulocyte Percent A 0.5 % (0-0.5); Lymphocytes Absolute Auto 0.54 K/mm3 (0.9-3.2); Lymphocytes Percent Auto 5.3 % (18.3-44.2); Mean Corpuscular Hemoglobin 30.1 pg (26-34); Mean Corpuscular Volume 94.2 fl (80-100); Mean Platelet Volume 12.3 fl (7.4-10.4); Monocytes Absolute Auto 0.5 K/mm3 (0.1-0.6); Monocytes Percent Auto 4.8 % (2.6-8.5); Neutrophils Absolute Auto 9.1 K/mm3 (1.3-6.7); Neutrophils Percent Auto 89.2 % (45.5-73.1); Platelet Count Result 196 k/mm3 (150-375); Red Blood Count 4.12 M/mm3 (4.2-5.4); Red Cell Distribution Width 13.2 % (11.5-14.5); White Blood Count 10.2 K/mm3 (4.5-10.0)
--- NOTE | 2024-09-24 12:11 | PC.NURSE ---
Attempted to take patient off O2 and oxygen sat dropped to 88%. patient placed back on 3L
--- NOTE | 2024-09-24 12:50 | PC.NURSE ---
Patient assisted to bedpan
[2024-09-24 13:39] LABS: Add Urine Microscopic? YES; Appearance Urine Cloudy (Clear); Bacteria Urine Rare /hpf; Bilirubin Urine 1+ (Negative); Blood Urine Negative (Negative); Calcium Oxalate Crystals Urine Present /hpf; Color Urine Dark Yellow (Yellow); Glucose Urine UA Negative (Negative); Ketones Urine Trace mg/dL (Negative); Leukocyte Esterase Ur Negative LEU/UL (Negative); Nitrate Urine Negative (Negative); Protein Urine 1+ mg/dL (Negative); Specific Grav Ur 1.025 (1.001-1.035); Squamous Epithelial Cell Urine Few /hpf (Few); WBC Urine 0-5 /hpf (0-3); pH Urine 5.5 (5.0-9.0)
[2024-09-24 13:54] LABS: Amphetamine Screen Urine Negative (Negative); Barbiturate Screen Urine Negative (Negative); Benzodiazepines Screen Urine Negative (Negative); Cannabinoid Screen Urine Negative (Negative); Cocaine Screen Urine Negative (Negative); Methadone Screen Urine Negative (Negative); Opiate Screen Urine Positive (Negative); Phencyclidine Screen Urine Negative (Negative)
--- NOTE | 2024-09-24 14:38 | PC.NURSE ---
Will begin antibiotics after obtaining blood cultures
[2024-09-24 14:46] LABS: CRP 7.9 mg/dL (<1.0)
--- NOTE | 2024-09-24 15:00 | PC.NURSE ---
phlebotomy called to obtain second set of blood cultures
[2024-09-24 15:14] LABS: Lactic Acid Reflex 1.2 mmol/L (0.7-2.0)
[2024-09-24] MEDS: levoFLOXacin 750 MG/D5W 150 ML 750 MG/150 ML BAG 100 MG IVPB (15:21)
[2024-09-24 15:33] LABS: Influenza A QL RT-PCR Negative (Negative); Influenza B QL RT-PCR Negative (Negative); RSV RNA, RT-PCR Negative (Negative); SARS-CoV-2 RNA PCR Negative (Negative)
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
[2024-09-24 16:08] LABS: MRSA (PCR) NOT DETECTED (NOT DETECTE)
[2024-09-24] MEDS: VANCOMYCIN 1,250 MG/NS 250 ML 1,250 MG/250 ML BAG 166.67 MG IVPB ×2 (16:51→19:22)
--- NOTE | 2024-09-24 16:59 | PC.NURSE ---
Dinner tray ordered for patient
[2024-09-24] MEDS: SODIUM CHLORIDE 0.9% IV 1,000 ML 125 ML IV CONT (20:56)
--- NOTE | 2024-09-24 21:50 | ADMGEN ---
This patient, Marina Bazan, was admitted to IMU Room 200-01. Patient/family oriented to hospital policies and general routines including ID bracelet, bed and alarms, visiting hours, pain management, procedures, bathroom and other care routines, personal items, smoking policy, room service/diet, and visiting hours. Information on how to activate the Rapid Response Team has been discussed. Patient/Family are encouraged to report perceived risks to care and to ask questions if they do not understand what they are told or what they should do.
[2024-09-24] MEDS: ACETAMINOPHEN 325 MG TABLET 650 MG PO (21:57)
[2024-09-25] VITALS (14 sets, daily range): BP systolic 97–133; BP diastolic 37–64; PULSE 61–113; RESP 16–116; TEMP 36.7–37.3; O2SAT 93–100
[2024-09-25 05:13] LABS: Basophils Percent Auto 0.3 % (0.2-1.2); Eosinophils Absolute Auto 0.2 K/mm3 (0-0.3); Eosinophils Percent Auto 2.3 % (0-4.4); Hematocrit 33.7 % (37.0-47.0); Hemoglobin 10.6 g/dL (12.0-15.0); Immature Granulocyte Absolute 0.03 K/mm3 (0.00-0.031); Immature Granulocyte Percent A 0.3 % (0-0.5); Immature Platelet Fraction Pct 9.7 % (0.9-11.2); Lymphocytes Absolute Auto 1.08 K/mm3 (0.9-3.2); Lymphocytes Percent Auto 12.3 % (18.3-44.2); Mean Corpuscular HGB Conc 31.5 g/dl (32-36); Mean Corpuscular Hemoglobin 30.8 pg (26-34); Mean Platelet Volume 13.4 fl (7.4-10.4); Monocytes Absolute Auto 0.4 K/mm3 (0.1-0.6); Monocytes Percent Auto 4.6 % (2.6-8.5); Neutrophils Percent Auto 80.2 % (45.5-73.1); Platelet Count Result 175 k/mm3 (150-375); Red Blood Count 3.44 M/mm3 (4.2-5.4); Red Cell Distribution Width 13.7 % (11.5-14.5); White Blood Count 8.8 K/mm3 (4.5-10.0)
[2024-09-25] MEDS: SODIUM CHLORIDE 0.9% IV 1,000 ML 125 ML IV CONT (05:13)
[2024-09-25 05:32] LABS: Alanine Aminotransferase 74 U/L (6-35); Albumin Level 2.5 g/dL (3.5-5.1); Alkaline Phosphatase 163 U/L (38-126); Anion Gap 3 mmol/L (4-12); Aspartate Amino Transferase 60 U/L (14-36); Bilirubin,Total 0.8 mg/dL (0.2-1.3); Blood Urea Nitrogen 23 mg/dL (7-17); Calcium 7.7 mg/dL (8.4-10.2); Carbon Dioxide 28 mmol/L (22-30); Chloride 107 mmol/L (98-107); Estimated CRCL calculation 79 ml/min; Estimated Glomerular Filt Rate > 60; Glucose 77 mg/dL (65-110); Magnesium 1.7 mg/dL (1.6-2.3); Potassium 3.6 mmol/L (3.4-5.0); Sodium 138 mmol/L (137-145)
[2024-09-25 06:08] LABS: Thyroid Stimulating Hormone Reflex 0.379 uIU/mL (0.465-4.68)
[2024-09-25 06:14] LABS: Hepatitis B Surface Antigen Negative (Negative)
[2024-09-25 06:20] LABS: HAV RESULT Negative (Negative); Hepatitis B Core IgM Result Negative (Negative)
[2024-09-25 06:32] LABS: Hepatitis C Virus Antibody Negative (Negative)
[2024-09-25 07:27] LABS: Free T4 Free Thyroxine Reflex 1.26 ng/dL (0.78-2.19)
[2024-09-25 09:20] LABS: Total Triiodothyronine (T3) 0.78 NG/ML (0.97-1.69)
[2024-09-25 09:30] LABS: Creatine Kinase 37 U/L (30-135)
[2024-09-25] MEDS: VANCOMYCIN 1,500 MG/NS 500 ML 1,500 MG/500 ML BAG 250 MG IVPB (09:49)
[2024-09-25] MEDS: ENOXAPARIN 40 MG/0.4 ML SYRINGE SUB-Q (09:49)
[2024-09-25] MEDS: ACETAMINOPHEN 325 MG TABLET 650 MG PO (10:38)
--- NOTE | 2024-09-25 11:32 | P.PNIM_ITS ---
Progress Note: A&P Assessment and Plan (1) Sepsis: Code(s): A41.9 - Sepsis, unspecified organism Status: Acute (2) Right lower lobe pneumonia: Code(s): J18.9 - Pneumonia, unspecified organism Status: Acute (3) Transaminitis: Code(s): R74.01 - Elevation of levels of liver transaminase levels Status: Acute (4) Cellulitis of left leg: Code(s): L03.116 - Cellulitis of left lower limb Status: Acute (5) Chronic kidney disease, stage 3: Code(s): N18.30 - Chronic kidney disease, stage 3 unspecified Status: Acute (6) Hypothyroidism: Code(s): E03.9 - Hypothyroidism, unspecified Status: Acute (7) Lymphedema: Code(s): I89.0 - Lymphedema, not elsewhere classified Status: Acute (8) Restless leg syndrome: Code(s): G25.81 - Restless legs syndrome Status: Acute (9) Chronic low back pain: Code(s): M54.50 - Low back pain, unspecified; G89.29 - Other chronic pain Status: Acute Plan This is a 48-year-old female with history of hypothyroidism, chronic back pain, restless leg syndrome, lymphedema, and cellulitis who presented to the emergency department via EMS from home for evaluation of weakness. she was so weak in the morning when she got up that she instead came to the the ED for evaluation. She does not have any specific complaints aside from generalized malaise and weakness. On exam she was noted to have swelling, redness, and warmth of the medial left leg suspicious for superficial thrombosis or cellulitis. community-acquired pneumonia, suspecting sepsis She meets sepsis criteria with tachycardia, elevated bilirubin, and hypotension in the setting of infection. She received 3 L normal saline fluid bolus with normalization of her blood pressures. Lactic acid level is within normal limits. Blood cultures have been obtained and are pending. Chest x-ray shows right lower lobe pneumonia started on levofloxacin (she reports an allergy to ceftriaxone). pending sputum for culture, Legionella pneumococcal antigens as well as myco plasma IgM. cellulitis in the left leg for which we will continue vancomycin. Soft tissue and venous Doppler ultrasounds:No deep venous thrombosis within the left common femoral, profunda femoral and femoral veins Mild elevated liver enzymes Patient reports that her LFTs are always elevated Denies abdominal pain right upper quadrant ultrasound: Fatty infiltration of an enlarged liver. Postoperative dilatation of the common bile duct, not unexpected, as detailed above Anemia Hemoglobin drops a permission, possible due to dilution No obvious bleeding Follow-up CBC Acquired hypothyroidism Continue Synthroid 75 mcg daily p.o. Venous stasis She is on furosemide for swelling which will be held. Subjective Date/time seen: 09/25/24 11:32 Interval history: I saw exam patient today. Patient has no new issue even overnight. Patient is afebrile, blood pressure stable, patient tachypnea, tachycardia, blood pressure on the lower side, labs reviewed, white blood cell within normal limit, hemoglobin 10.6 Exam Narrative: GENERAL: Pleasant, in no acute distress. Well-nourished. - EYES: EOMI. Anicteric. - HENT: Moist mucous membranes. - LUNGS: Clear to auscultation bilateral ly, no wheezing, rhonchi, or rales. - CARDIOVASCULAR: Regular rate and rhyth m. No murmur. No JVD. - ABDOMEN: Soft, non-tender and non-dist ended. No palpable masses. - EXTREMITIES: No edema. Peripheral puls es 2+. Non-tender. - NEUROLOGIC: No focal neurological defi cits. CN II-XII grossly intact. General weakness - PSYCHIATRIC: Awake, Alert and oriented x 3. Appropriate mood and affect. - SKIN: Left thigh tender, swelling and erythema - LYMPH: No cervical lymphadenopathy. Objective Data Vital Signs Vital Signs: Vital Signs - 24 hr 09/24/24 12:00 09/24/24 13:30 09/24/24 14:30 Temperature Pulse Rate 103 H 127 H 108 H Respiratory Rate 14 24 H 17 Blood Pressure 105/52 L 130/62 130/75 Pulse Oximetry 92 93 96 Oxygen Delivery Oxygen Flow Rate 09/24/24 16:55 09/24/24 17:00 09/24/24 17:30 Temperature Pulse Rate 95 89 73 Respiratory Rate 15 15 16 Blood Pressure 127/75 99/61 L 71/62 L Pulse Oximetry 96 96 91 Oxygen Delivery Oxygen Flow Rate 09/24/24 17:44 09/24/24 18:30 09/24/24 19:00 Temperature Pulse Rate 73 79 87 Respiratory Rate 19 17 18 Blood Pressure 84/66 L 92/64 L Pulse Oximetry 92 95 93 Oxygen Delivery Oxygen Flow Rate 09/24/24 20:00 09/24/24 20:16 09/24/24 21:05 Temperature Pulse Rate 99 98 97 Respiratory Rate 14 13 16 Blood Pressure 88/72 L 115/60 114/58 L Pulse Oximetry 95 95 97 Oxygen Delivery Oxygen Flow Rate 09/24/24 21:53 09/24/24 22:00 09/24/24 22:00 Temperature 98.3 F Pulse Rate 98 88 Respiratory Rate 16 Blood Pressure 125/58 L Pulse Oximetry 98 95 Oxygen Delivery Nasal Cannula Oxygen Flow Rate 4 09/24/24 23:27 09/24/24 23:29 09/24/24 23:29 Temperature 98.3 F Pulse Rate 86 88 88 Respiratory Rate 16 16 Blood Pressure 127/75 Pulse Oximetry 98 98 Oxygen Delivery Nasal Cannula Oxygen Flow Rate 4 09/25/24 02:00 09/25/24 03:58 09/25/24 04:00 Temperature 98.0 F Pulse Rate 86 84 79 Respiratory Rate 16 16 Blood Pressure 116/44 L Pulse Oximetry 93 93 Oxygen Delivery Nasal Cannula Oxygen Flow Rate 4 09/25/24 04:00 09/25/24 05:36 09/25/24 08:00 Temperature 98.0 F Pulse Rate 79 76 87 Respiratory Rate 116 H Blood Pressure 115/49 L Pulse Oximetry 98 Oxygen Delivery Oxygen Flow Rate Intake/Output Intake/Output: Intake & Output 09/22/24 09/23/24 09/24/24 09/25/24 23:59 23:59 23:59 23:59 Intake Total 2650 490 Output Total 250 Balance 2650 240 Meds/Results Medications: Active Medications Generic Name Dose Route Start Last Admin Trade Name Freq PRN Reason Stop Dose Admin Acetaminophen 650 mg 09/24/24 16:17 09/25/24 10:38 Acetaminophen 325 Mg Tablet PO 650 mg Q6H PRN Administration Mild Pain (1-3) or Fever Enoxaparin Sodium 40 mg 09/25/24 09:00 09/25/24 09:49 Enoxaparin 40 Mg/0.4 Ml Syringe SUB-Q 40 mg DAILY KIERRA Administration Vancomycin HCl 1,500 mg in 500 mls @ 250 mls/hr 09/25/24 08:00 09/25/24 09:49 Vancomycin 1,500 Mg/Ns 500 Ml IVPB 250 mls/hr Q18H KIERRA Administration Levofloxacin/Dextrose 750 mg in 150 mls @ 100 mls/hr 09/24/24 15:00 09/24/24 19:20 Levaquin 750 Mg/D5w 150 Ml IVPB Not Given Q24H [facility] Radiology Results: ITS Impressions Head CT 09/24/24 10:56 IMPRESSION: 1. No acute intracranial process. 2. Chronic right maxillary sinusitis. Chest X-Ray 09/24/24 11:06 IMPRESSION: Right lower lobe pneumonia. Abdomen Ultrasound 09/24/24 20:47 IMPRESSION: Fatty infiltration of an enlarged liver. Postoperative dilatation of the common bile duct, not unexpected, as detailed above Venous Doppler Study 09/24/24 23:12 IMPRESSION: No deep venous thrombosis within the left common femoral, profunda femoral and femoral veins, as detailed above. Limited evaluation below the knee secondary to significant induration and soft tissue swelling. Labs Labs: Laboratory Results - last 24 hr 09/24/24 09/24/24 09/24/24 11:37 12:58 14:50 WBC 10.2 H RBC 4.12 L Hgb 12.4 Hct 38.8 MCV 94.2 MCH 30.1 MCHC 32.0 RDW 13.2 Plt Count 196 MPV 12.3 H Immature Gran % (Auto) 0.5 Neut % (Auto) 89.2 H Lymph % (Auto) 5.3 L [place] % (Auto) 4.8 Eos % (Auto) 0.0 Baso % (Auto) 0.2 Lymph # (Auto) 0.54 L [place] # (Auto) 0.5 Eos # (Auto) 0.0 Baso # (Auto) 0.0 Abs Immat Gran (auto) 0.05 H Absolute Neuts (auto) 9.1 H Absolute Nucleated RBC 0.000 Nucleated RBC % 0.0 % Immature Plt Fraction Sodium Potassium Chloride Carbon Dioxide Anion Gap BUN Creatinine Estim Creat Clear Calc Estimated GFR Glucose Lactic Acid Calcium Magnesium Total Bilirubin AST ALT Alkaline Phosphatase Total Creatine Kinase C-Reactive Protein 7.9 H Total Protein Albumin TSH (Reflex) Free T4 Total T3 Urine Color Dark yellow Urine Appearance Cloudy H Urine pH 5.5 Ur Specific [place] 1.025 Urine Protein 1+ H Urine Glucose (UA) Negative Urine Ketones Trace H Ur Blood (Man) Negative Urine Nitrate Negative Urine Bilirubin 1+ H Urine Urobilinogen 1.0 Leukocyte Esterase Rfl Negative Urine RBC 3-5 H Urine WBC 0-5 Ur Squamous Epith Cells Few Calcium Oxalate Crystal Present Urine Bacteria Rare Urine Casts 11-20 Nasal MRSA (PCR) Not detected Urine Opiates Screen Positive A Urine Methadone Screen Negative Ur Barbiturates Screen Negative Ur Phencyclidine Scrn Negative Ur Amphetamine Screen Negative U Benzodiazepines Scrn Negative Urine Cocaine Screen Negative U Cannabinoids Screen Negative Hepatitis A IgM Ab Hep Bs Antigen Hep B Core IgM Ab Hepatitis C Ab Screen Influenza A (RT-PCR) Negative Influenza B (RT-PCR) Negative RSV (RT-PCR) Negative SARS-CoV-2 RNA (RT-PCR) Negative 09/24/24 09/25/24 14:57 04:15 WBC 8.8 RBC 3.44 L Hgb 10.6 L Hct 33.7 L MCV 98.0 MCH 30.8 MCHC 31.5 L RDW 13.7 Plt Count 175 MPV 13.4 H Immature Gran % (Auto) 0.3 Neut % (Auto) 80.2 H Lymph % (Auto) 12.3 L [place] % (Auto) 4.6 Eos % (Auto) 2.3 Baso % (Auto) 0.3 Lymph # (Auto) 1.08 [place] # (Auto) 0.4 Eos # (Auto) 0.2 Baso # (Auto) 0.0 Abs Immat Gran (auto) 0.03 Absolute Neuts (auto) 7.0 H Absolute Nucleated RBC 0.000 Nucleated RBC % 0.0 % Immature Plt Fraction 9.7 Sodium 138 Potassium 3.6 Chloride 107 Carbon Dioxide 28 Anion Gap 3 L BUN 23 H Creatinine 0.92 Estim Creat Clear Calc 79 Estimated GFR > 60 Glucose 77 Lactic Acid 1.2 Calcium 7.7 L Magnesium 1.7 Total Bilirubin 0.8 AST 60 H ALT 74 H Alkaline Phosphatase 163 H Total Creatine Kinase 37 C-Reactive Protein Total Protein 5.0 L Albumin 2.5 L TSH (Reflex) 0.379 L Free T4 1.26 Total T3 0.78 L Urine Color Urine Appearance Urine pH Ur Specific [place] Urine Protein Urine Glucose (UA) Urine Ketones Ur Blood (Man) Urine Nitrate Urine Bilirubin Urine Urobilinogen Leukocyte Esterase Rfl Urine RBC Urine WBC Ur Squamous Epith Cells Calcium Oxalate Crystal Urine Bacteria Urine Casts Nasal MRSA (PCR) Urine Opiates Screen Urine Methadone Screen Ur Barbiturates Screen Ur Phencyclidine Scrn Ur Amphetamine Screen U Benzodiazepines Scrn Urine Cocaine Screen U Cannabinoids Screen Hepatitis A IgM Ab Negative Hep Bs Antigen Negative Hep B Core IgM Ab Negative Hepatitis C Ab Screen Negative Influenza A (RT-PCR) Influenza B (RT-PCR) RSV (RT-PCR) SARS-CoV-2 RNA (RT-PCR)
[2024-09-25] MEDS: TIZANIDINE HCL 4 MG TABLET 8 MG PO ×2 (15:08→21:36)
[2024-09-25] MEDS: PREGABALIN (*CRX) 50 MG CAPSULE 200 MG PO ×2 (15:09→21:36)
[2024-09-25] MEDS: levoFLOXacin 750 MG/D5W 150 ML 750 MG/150 ML BAG 100 MG IVPB (15:10)
[2024-09-25] MEDS: HYDROcodone/acetaminophen (*CRX) 10-325 MG TABLET 1 TAB PO (18:02)
[2024-09-25] MEDS: rOPINIRole HCL 1 MG TABLET PO (21:36)
[2024-09-25] MEDS: MONTELUKAST SODIUM 10 MG TABLET PO (22:33)
[2024-09-26] VITALS (16 sets, daily range): BP systolic 104–132; BP diastolic 46–77; PULSE 55–90; RESP 16–18; TEMP 36.4–37.1; O2SAT 92–97
[2024-09-26] MEDS: HYDROcodone/acetaminophen (*CRX) 10-325 MG TABLET 1 TAB PO ×3 (04:46→21:25)
[2024-09-26] MEDS: ALBUTEROL SULFATE (*SP) AEROSOL 1 PUFF 2 PUFF INHALATION ×3 (05:11→22:14)
[2024-09-26] MEDS: PREGABALIN (*CRX) 50 MG CAPSULE 200 MG PO ×3 (06:16→21:24)
[2024-09-26] MEDS: TIZANIDINE HCL 4 MG TABLET 8 MG PO ×3 (06:16→21:23)
[2024-09-26] MEDS: LEVOTHYROXINE SODIUM 75 MCG TABLET PO (06:16)
--- NOTE | 2024-09-26 08:05 | P.PNIM_ITS ---
Progress Note: A&P Assessment and Plan (1) Sepsis: Code(s): A41.9 - Sepsis, unspecified organism Status: Acute (2) Right lower lobe pneumonia: Code(s): J18.9 - Pneumonia, unspecified organism Status: Acute (3) Transaminitis: Code(s): R74.01 - Elevation of levels of liver transaminase levels Status: Acute (4) Cellulitis of left leg: Code(s): L03.116 - Cellulitis of left lower limb Status: Acute (5) Chronic kidney disease, stage 3: Code(s): N18.30 - Chronic kidney disease, stage 3 unspecified Status: Acute (6) Hypothyroidism: Code(s): E03.9 - Hypothyroidism, unspecified Status: Acute (7) Lymphedema: Code(s): I89.0 - Lymphedema, not elsewhere classified Status: Acute (8) Restless leg syndrome: Code(s): G25.81 - Restless legs syndrome Status: Acute (9) Chronic low back pain: Code(s): M54.50 - Low back pain, unspecified; G89.29 - Other chronic pain Status: Acute Plan This is a 48-year-old female with history of hypothyroidism, chronic back pain, restless leg syndrome, lymphedema, and cellulitis who presented to the emergency department via EMS from home for evaluation of weakness. she was so weak in the morning when she got up that she instead came to the the ED for evaluation. She does not have any specific complaints aside from generalized malaise and weakness. On exam she was noted to have swelling, redness, and warmth of the medial left leg suspicious for superficial thrombosis or cellulitis. community-acquired pneumonia, suspecting sepsis She meets sepsis criteria with tachycardia, elevated bilirubin, and hypotension in the setting of infection. She received 3 L normal saline fluid bolus with normalization of her blood pressures. Lactic acid level is within normal limits. Blood cultures have been obtained and are pending. Chest x-ray shows right lower lobe pneumonia started on levofloxacin (she reports an allergy to ceftriaxone). pending sputum for culture, Legionella pneumococcal antigens as well as myco plasma IgM, pending cellulitis in the left leg for which we will continue vancomycin. Soft tissue and venous Doppler ultrasounds:No deep venous thrombosis within the left common femoral, profunda femoral and femoral veins Mild elevated liver enzymes Patient reports that her LFTs are always elevated Denies abdominal pain right upper quadrant ultrasound: Fatty infiltration of an enlarged liver. Postoperative dilatation of the common bile duct, not unexpected, as detailed above Anemia Hemoglobin drops a permission, possible due to dilution No obvious bleeding Follow-up CBC Acquired hypothyroidism Continue Synthroid 75 mcg daily p.o. Venous stasis She is on furosemide for swelling which will be held. Patient condition continue to improve Per OT PT recommendation, patient needs home health when patient is discharged Transfer patient to medical floor Subjective Date/time seen: 09/26/24 08:05 Interval history: I saw exam patient today. Patient feels better today, patient has cough, and also has shortness breath with exertion. Patient is able to ambulate with assistance of physical therapist. Patient is afebrile, blood pressure stable, patient tachypnea, tachycardia, blood pressure on the lower side, labs reviewed, white blood cell within normal limit Exam Narrative: GENERAL: Pleasant, in no acute distress. Well-nourished. - EYES: EOMI. Anicteric. - HENT: Moist mucous membranes. - LUNGS: Clear to auscultation bilateral ly, no wheezing, rhonchi, or rales. - CARDIOVASCULAR: Regular rate and rhyth m. No murmur. No JVD. - ABDOMEN: Soft, non-tender and non-dist ended. No palpable masses. - EXTREMITIES: No edema. Peripheral puls es 2+. Non-tender. - NEUROLOGIC: No focal neurological defi cits. CN II-XII grossly intact. General weakness - PSYCHIATRIC: Awake, Alert and oriented x 3. Appropriate mood and affect. - SKIN: Left thigh tender, swelling and erythema - LYMPH: No cervical lymphadenopathy. Objective Data Vital Signs Vital Signs: Vital Signs - 24 hr 09/25/24 10:00 09/25/24 12:00 09/25/24 12:00 Temperature 99.1 F Pulse Rate 110 H 91 106 H Respiratory Rate 20 Blood Pressure 133/64 Pulse Oximetry 99 Oxygen Delivery Oxygen Flow Rate 09/25/24 14:00 09/25/24 16:00 09/25/24 16:00 Temperature 98.2 F Pulse Rate 101 H 65 77 Respiratory Rate 16 Blood Pressure 105/38 L Pulse Oximetry 100 Oxygen Delivery Oxygen Flow Rate 09/25/24 18:00 09/25/24 19:56 09/25/24 20:00 Temperature 98.0 F Pulse Rate 71 78 70 Respiratory Rate 16 16 Blood Pressure 123/58 L Pulse Oximetry 96 96 Oxygen Delivery Nasal Cannula Oxygen Flow Rate 3 09/25/24 20:00 09/25/24 22:00 09/25/24 23:44 Temperature 98.0 F Pulse Rate 70 66 61 Respiratory Rate 16 Blood Pressure 97/37 L Pulse Oximetry 97 Oxygen Delivery Oxygen Flow Rate 09/26/24 00:00 09/26/24 00:00 09/26/24 02:00 Temperature Pulse Rate 61 61 64 Respiratory Rate 16 Blood Pressure Pulse Oximetry 97 Oxygen Delivery Nasal Cannula Oxygen Flow Rate 3 09/26/24 04:00 09/26/24 04:00 09/26/24 05:12 Temperature Pulse Rate 70 70 Respiratory Rate 16 Blood Pressure Pulse Oximetry 97 97 Oxygen Delivery Nasal Cannula Nasal Cannula Oxygen Flow Rate 2 3 09/26/24 05:41 09/26/24 06:00 09/26/24 07:18 Temperature 98.0 F 97.8 F Pulse Rate 81 68 65 Respiratory Rate 16 16 Blood Pressure 132/64 107/46 L Pulse Oximetry 92 92 Oxygen Delivery Oxygen Flow Rate Intake/Output Intake/Output: Intake & Output 09/23/24 09/24/24 09/25/24 09/26/24 23:59 23:59 23:59 23:59 Intake Total 2650 850 550 Output Total 850 600 Balance 2650 0 -50 Meds/Results Medications: Active Medications Generic Name Dose Route Start Last Admin Trade Name Freq PRN Reason Stop Dose Admin Acetaminophen 650 mg 09/24/24 16:17 09/25/24 10:38 Acetaminophen 325 Mg Tablet PO 650 mg Q6H PRN Administration Mild Pain (1-3) or Fever Hydrocodone Bitart/Acetaminophen 1 tab 09/25/24 14:20 09/26/24 04:46 Hydrocodone/Acetaminophen (*Crx) 10-325 Mg Tablet PO 1 tab Q8H PRN Administration pain (scale score 7-10) Albuterol 2 puff 09/25/24 14:20 09/26/24 05:11 Albuterol Sulfate (*Sp) Aerosol 1 Puff INHALATION 2 puff PRN PRN Administration WHEEZE Enoxaparin Sodium 40 mg 09/25/24 09:00 09/25/24 09:49 Enoxaparin 40 Mg/0.4 Ml Syringe SUB-Q 40 mg DAILY KIERRA Administration Fluticasone Propionate 1 spray 09/26/24 09:00 Fluticasone Propionate 0.05% Na Spr 16 Gm Btl (*Bkc) NASAL DAILY KIERRA Furosemide 40 mg 09/26/24 09:00 Furosemide 40 Mg Tablet PO QAM KIERRA Levofloxacin/Dextrose 750 mg in 150 mls @ 100 mls/hr 09/24/24 15:00 09/25/24 15:10 Levaquin 750 Mg/D5w 150 Ml IVPB 100 mls/hr Q24H KIERRA Administration Levothyroxine Sodium 75 mcg 09/26/24 06:30 09/26/24 06:16 Levothyroxine Sodium 75 Mcg Tablet PO 75 mcg DAILY@0630 KIERRA Administration Miscellaneous Information 0 each 09/25/24 00:01 09/25/24 14:51 Magnesium 30 Mg Is Non-Formulary. We Stock Magnesium Gluconate 500 Mg (= 27 Mg Magnesium) XX 10/25/24 00:00 Not Given CLARIFY KIERRA Miscellaneous Information 0 each 09/25/24 00:01 09/25/24 15:07 Prometrium Is Non-Formulary. Use Pt Own Supply? XX 10/25/24 00:00 Not Given CLARIFY KIERRA Miscellaneous Information 0 each 09/25/24 00:01 09/25/24 15:06 Desvenlafaxine Succinate 100 Mg Is Non-Formulary. Use Pt Own Supply? XX 10/25/24 00:00 Not Given CLARIFY KIERRA Montelukast Sodium 10 mg 09/25/24 21:50 09/25/24 22:33 Montelukast Sodium 10 Mg Tablet PO 10 mg HS KIERRA Administration Multivitamins Therapeutic 1 tablet 09/26/24 09:00 Multivitamins Therapeutic Tab (*Bkc) PO DAILY KIERRA Non-Formulary Medication 100 mg 09/26/24 09:00 Desvenlafaxine Succinate PO 10/26/24 08:59 DAILY KIERRA Non-Formulary Medication 30 mg 09/26/24 09:00 Magnesium PO 10/26/24 08:59 DAILY KIERRA Non-Formulary Medication 200 mg 09/25/24 21:00 Progesterone Micronized [Prometrium] PO 10/25/24 20:59 QHS KIERRA Pregabalin 200 mg 09/25/24 22:00 09/26/24 06:16 Pregabalin (*Crx) 50 Mg Capsule PO 200 mg Q8HR KIERRA Administration Ropinirole HCl 1 mg 09/25/24 21:00 09/25/24 21:36 Ropinirole Hcl 1 Mg Tablet PO 1 mg HS KIERRA Administration Tizanidine HCl 8 mg 09/25/24 14:20 09/26/24 06:16 Tizanidine Hcl 4 Mg Tablet PO 8 mg Q8HR KIERRA Administration Radiology Results: ITS Impressions Head CT 09/24/24 10:56 IMPRESSION: 1. No acute intracranial process. 2. Chronic right maxillary sinusitis. Chest X-Ray 09/24/24 11:06 IMPRESSION: Right lower lobe pneumonia. Abdomen Ultrasound 09/24/24 20:47 IMPRESSION: Fatty infiltration of an enlarged liver. Postoperative dilatation of the common bile duct, not unexpected, as detailed above Venous Doppler Study 09/24/24 23:12 IMPRESSION: No deep venous thrombosis within the left common femoral, profunda femoral and femoral veins, as detailed above. Limited evaluation below the knee secondary to significant induration and soft tissue swelling. Labs Labs: Laboratory Results - last 24 hr 09/25/24 04:15 Total Creatine Kinase 37 Total T3 0.78 L
[2024-09-26] MEDS: MULTIVITAMINS THERAPEUTIC TAB (*BKC) 1 TABLET PO (08:48)
[2024-09-26] MEDS: FLUTICASONE PROPIONATE 0.05% NA SPR 16 GM BTL (*BKC) 1 SPRAY NASAL (08:48)
[2024-09-26] MEDS: FUROSEMIDE 40 MG TABLET PO (08:48)
[2024-09-26] MEDS: ENOXAPARIN 40 MG/0.4 ML SYRINGE SUB-Q (08:48)
[2024-09-26] MEDS: NONFORMULARY DRUG (Desvenlafaxine Succinate 50 mg tablet extended release 24 hr) PO (13:37)
[2024-09-26] MEDS: levoFLOXacin 750 MG/D5W 150 ML 750 MG/150 ML BAG 100 MG IVPB (14:47)
[2024-09-26] MEDS: DOXYCYCLINE 100 MG/NS 100 ML 100 MG/100 ML BAG IVPB (17:20)
--- NOTE | 2024-09-26 18:07 | PC.NURSE ---
This patient, Marina Bazan, was transferred to [[id number]] on 09/26/24 at 1807. Personal belongings sent with patient. Report given to [Lauren HURST]. Appropriate documentation sent with patient.
[2024-09-26] MEDS: MONTELUKAST SODIUM 10 MG TABLET PO (21:23)
[2024-09-26] MEDS: rOPINIRole HCL 1 MG TABLET PO (21:23)
[2024-09-27] MEDS: DOXYCYCLINE 100 MG/NS 100 ML 100 MG/100 ML BAG IVPB (04:11)
[2024-09-27 05:43] VITALS: BP 117/51; PULSE 71; RESP 16; TEMP 36.3; O2SAT 91
[2024-09-27] MEDS: LEVOTHYROXINE SODIUM 75 MCG TABLET PO (06:11)
[2024-09-27] MEDS: PREGABALIN (*CRX) 50 MG CAPSULE 200 MG PO ×2 (06:11→14:18)
[2024-09-27] MEDS: TIZANIDINE HCL 4 MG TABLET 8 MG PO ×2 (06:11→14:17)
[2024-09-27 08:00] VITALS: O2SAT 93
[2024-09-27] MEDS: NONFORMULARY DRUG (Desvenlafaxine Succinate 50 mg tablet extended release 24 hr) PO (09:22)
[2024-09-27] MEDS: FUROSEMIDE 40 MG TABLET PO (09:23)
[2024-09-27] MEDS: FLUTICASONE PROPIONATE 0.05% NA SPR 16 GM BTL (*BKC) 1 SPRAY NASAL (09:23)
[2024-09-27] MEDS: MULTIVITAMINS THERAPEUTIC TAB (*BKC) 1 TABLET PO (09:23)
[2024-09-27] MEDS: ENOXAPARIN 40 MG/0.4 ML SYRINGE SUB-Q (09:23)
[2024-09-27] MEDS: HYDROcodone/acetaminophen (*CRX) 10-325 MG TABLET 1 TAB PO (09:28)
--- NOTE | 2024-09-27 10:55 | PM.IMPN ---
Progress Note: A&P Assessment and Plan (1) Sepsis: Code(s): A41.9 - Sepsis, unspecified organism Status: Acute (2) Right lower lobe pneumonia: Code(s): J18.9 - Pneumonia, unspecified organism Status: Acute (3) Transaminitis: Code(s): R74.01 - Elevation of levels of liver transaminase levels Status: Acute (4) Cellulitis of left leg: Code(s): L03.116 - Cellulitis of left lower limb Status: Acute (5) Chronic kidney disease, stage 3: Code(s): N18.30 - Chronic kidney disease, stage 3 unspecified Status: Acute (6) Hypothyroidism: Code(s): E03.9 - Hypothyroidism, unspecified Status: Acute (7) Lymphedema: Code(s): I89.0 - Lymphedema, not elsewhere classified Status: Acute (8) Restless leg syndrome: Code(s): G25.81 - Restless legs syndrome Status: Acute (9) Chronic low back pain: Code(s): M54.50 - Low back pain, unspecified; G89.29 - Other chronic pain Status: Acute Plan This is a 48-year-old female with history of hypothyroidism, chronic back pain, restless leg syndrome, lymphedema, and cellulitis who presented to the emergency department via EMS from home for evaluation of weakness. she was so weak in the morning when she got up that she instead came to the the ED for evaluation. She does not have any specific complaints aside from generalized malaise and weakness. On exam she was noted to have swelling, redness, and warmth of the medial left leg suspicious for superficial thrombosis or cellulitis. community-acquired pneumonia, suspecting sepsis She meets sepsis criteria with tachycardia, elevated bilirubin, and hypotension in the setting of infection. She received 3 L normal saline fluid bolus with normalization of her blood pressures. Lactic acid level is within normal limits. Blood cultures does not have bacterial growth Chest x-ray shows right lower lobe pneumonia started on levofloxacin (she reports an allergy to ceftriaxone). Gram-positive cocci in sputum for culture, Legionella pneumococcal antigens as well as mycoplasma IgM, pending Change Levaquin p.o. cellulitis Received vancomycin. Soft tissue and venous Doppler ultrasounds:No deep venous thrombosis within the left common femoral, profunda femoral and femoral veins MRSA negative Changed to doxycycline Mild elevated liver enzymes Patient reports that her LFTs are always elevated Denies abdominal pain right upper quadrant ultrasound: Fatty infiltration of an enlarged liver. Postoperative dilatation of the common bile duct, not unexpected, as detailed above Anemia Hemoglobin drops a permission, possible due to dilution No obvious bleeding Follow-up CBC Acquired hypothyroidism Continue Synthroid 75 mcg daily p.o. Venous stasis She is on furosemide for swelling which will be held. Discharge patient today Subjective Date/time seen: 09/27/24 10:55 Interval history: I saw exam patient today. Patient denies chest pain, of breath. Patient denies abdomen pain nausea vomiting diarrhea. Exercise tolerance increase Patient is afebrile, blood pressure stable, pulse ox 94 on room air, Exam Narrative: GENERAL: Pleasant, in no acute distress. Well-nourished. - EYES: EOMI. Anicteric. - HENT: Moist mucous membranes. - LUNGS: Clear to auscultation bilaterally, no wheezing, rhonchi, or rales. - CARDIOVASCULAR: Regular rate and rhythm. No murmur. No JVD. - ABDOMEN: Soft, non-tender and non-distended. No palpable masses. - EXTREMITIES: No edema. Peripheral pulses 2+. Non-tender. - NEUROLOGIC: No focal neurological deficits. CN II-XII grossly intact. - PSYCHIATRIC: Awake, Alert and oriented x 3. Appropriate mood and affect. - SKIN: No rashes or lesions. Warm. - LYMPH: No cervical lymphadenopathy. Objective Data Vital Signs Vital Signs: Vital Signs - 24 hr 09/26/24 13:42 09/26/24 13:45 09/26/24 15:35 Temperature 98.8 F Pulse Rate 62 74 Respiratory Rate 18 16 Blood Pressure 132/77 104/48 L Pulse Oximetry 95 Oxygen Delivery 09/26/24 18:23 09/26/24 20:00 09/26/24 21:53 Temperature 97.5 F L 98.8 F Pulse Rate 79 74 Respiratory Rate 18 17 Blood Pressure 122/61 116/56 L Pulse Oximetry 97 93 Oxygen Delivery Room Air 09/26/24 22:14 09/26/24 22:15 09/27/24 05:43 Temperature 97.4 F L Pulse Rate 70 71 Respiratory Rate 18 16 Blood Pressure 117/51 L Pulse Oximetry 94 91 Oxygen Delivery Room Air 09/27/24 08:00 Temperature Pulse Rate Respiratory Rate Blood Pressure Pulse Oximetry 93 Oxygen Delivery Room Air Intake/Output Intake/Output: Intake & Output 09/24/24 09/25/24 09/26/24 09/27/24 23:59 23:59 23:59 23:59 Intake Total 2650 1000 2030 450 Output Total 850 1650 1000 Balance 2650 150 380 -550 Meds/Results Medications: Active Medications Generic Name Dose Route Start Last Admin Trade Name Freq PRN Reason Stop Dose Admin Acetaminophen 650 mg 09/24/24 16:17 09/25/24 10:38 Acetaminophen 325 Mg Tablet PO 650 mg Q6H PRN Administration Mild Pain (1-3) or Fever Hydrocodone Bitart/Acetaminophen 1 tab 09/25/24 14:20 09/27/24 09:28 Hydrocodone/Acetaminophen (*Crx) 10-325 Mg Tablet PO 1 tab Q8H PRN Administration pain (scale score 7-10) Albuterol 2 puff 09/25/24 14:20 09/26/24 22:14 Albuterol Sulfate (*Sp) Aerosol 1 Puff INHALATION 2 puff PRN PRN Administration WHEEZE Enoxaparin Sodium 40 mg 09/25/24 09:00 09/27/24 09:23 Enoxaparin 40 Mg/0.4 Ml Syringe SUB-Q 40 mg DAILY KIERRA Administration Fluticasone Propionate 1 spray 09/26/24 09:00 09/27/24 09:23 Fluticasone Propionate 0.05% Na Spr 16 Gm Btl (*Bkc) NASAL 1 spray DAILY KIERRA Administration Furosemide 40 mg 09/26/24 09:00 09/27/24 09:23 Furosemide 40 Mg Tablet PO 40 mg QAM KIERRA Administration Levofloxacin/Dextrose 750 mg in 150 mls @ 100 mls/hr 09/24/24 15:00 09/26/24 16:20 Levaquin 750 Mg/D5w 150 Ml IVPB Infused Q24H KIERRA Infusion Doxycycline Hyclate 100 mg in 100 mls @ 100 mls/hr 09/26/24 17:00 09/27/24 05:11 Vibramycin 100 Mg/Ns 100 Ml IVPB Infused Q12H KIERRA Infusion Levothyroxine Sodium 75 mcg 09/26/24 06:30 09/27/24 06:11 Levothyroxine Sodium 75 Mcg Tablet PO 75 mcg DAILY@0630 KIERRA Administration Miscellaneous Information 0 each 09/25/24 00:01 09/25/24 14:51 Magnesium 30 Mg Is Non-Formulary. We Stock Magnesium Gluconate 500 Mg (= 27 Mg Magnesium) XX 10/25/24 00:00 Not Given [facility] Miscellaneous Information 0 each 09/25/24 00:01 09/25/24 15:07 Prometrium Is Non-Formulary. Use Pt Own Supply? XX 10/25/24 00:00 Not Given [facility] Montelukast Sodium 10 mg 09/25/24 21:50 09/26/24 21:23 Montelukast Sodium 10 Mg Tablet PO 10 mg HS [facility] Administration Multivitamins Therapeutic 1 tablet 09/26/24 09:00 09/27/24 09:23 Multivitamins Therapeutic Tab (*Bkc) PO 1 tablet DAILY [facility] Administration Nonformulary Drug ( 0 mg 09/26/24 09:00 09/27/24 09:22 Desvenlafaxine PO 10/26/24 08:59 100 mg Succinate 50 Mg DAILY [facility] Administration Tablet Extended Release 24 Hr) Non-Formulary Medication 30 mg 09/26/24 09:00 Magnesium PO 10/26/24 08:59 DAILY [facility] Non-Formulary Medication 200 mg 09/25/24 21:00 Progesterone Micronized [Prometrium] PO 10/25/24 20:59 QHS KIERRA Pregabalin 200 mg 09/25/24 22:00 09/27/24 06:11 Pregabalin (*Crx) 50 Mg Capsule PO 200 mg Q8HR [facility] Administration Ropinirole HCl 1 mg 09/25/24 21:00 09/26/24 21:23 Ropinirole Hcl 1 Mg Tablet PO 1 mg HS [facility] Administration Tizanidine HCl 8 mg 09/25/24 14:20 09/27/24 06:11 Tizanidine Hcl 4 Mg Tablet PO 8 mg Q8HR [facility] Administration Radiology Results: ITS Impressions Head CT 09/24/24 10:56 IMPRESSION: 1. No acute intracranial process. 2. Chronic right maxillary sinusitis. Chest X-Ray 09/24/24 11:06 IMPRESSION: Right lower lobe pneumonia. Abdomen Ultrasound 09/24/24 20:47 IMPRESSION: Fatty infiltration of an enlarged liver. Postoperative dilatation of the common bile duct, not unexpected, as detailed above Venous Doppler Study 09/24/24 23:12 IMPRESSION: No deep venous thrombosis within the left common femoral, profunda femoral and femoral veins, as detailed above. Limited evaluation below the knee secondary to significant induration and soft tissue swelling.
--- NOTE | 2024-09-27 11:00 | PM.DS ---
DS: Admitting Diagnosis Discharge Date 09/27/24 Admitting Diagnosis (1) Sepsis: Code(s): A41.9 - Sepsis, unspecified organism Status: Acute (2) Right lower lobe pneumonia: Code(s): J18.9 - Pneumonia, unspecified organism Status: Acute (3) Transaminitis: Code(s): R74.01 - Elevation of levels of liver transaminase levels Status: Acute (4) Cellulitis of left leg: Code(s): L03.116 - Cellulitis of left lower limb Status: Acute (5) Chronic kidney disease, stage 3: Code(s): N18.30 - Chronic kidney disease, stage 3 unspecified Status: Acute (6) Hypothyroidism: Code(s): E03.9 - Hypothyroidism, unspecified Status: Acute (7) Lymphedema: Code(s): I89.0 - Lymphedema, not elsewhere classified Status: Acute (8) Restless leg syndrome: Code(s): G25.81 - Restless legs syndrome Status: Acute (9) Chronic low back pain: Code(s): M54.50 - Low back pain, unspecified; G89.29 - Other chronic pain Status: Acute DS: Discharge Diagnosis Discharge Diagnosis (1) Sepsis: Code(s): A41.9 - Sepsis, unspecified organism Status: Acute (2) Right lower lobe pneumonia: Code(s): J18.9 - Pneumonia, unspecified organism Status: Acute (3) Transaminitis: Code(s): R74.01 - Elevation of levels of liver transaminase levels Status: Acute (4) Cellulitis of left leg: Code(s): L03.116 - Cellulitis of left lower limb Status: Acute (5) Chronic kidney disease, stage 3: Code(s): N18.30 - Chronic kidney disease, stage 3 unspecified Status: Acute (6) Hypothyroidism: Code(s): E03.9 - Hypothyroidism, unspecified Status: Acute (7) Lymphedema: Code(s): I89.0 - Lymphedema, not elsewhere classified Status: Acute (8) Restless leg syndrome: Code(s): G25.81 - Restless legs syndrome Status: Acute (9) Chronic low back pain: Code(s): M54.50 - Low back pain, unspecified; G89.29 - Other chronic pain Status: Acute DS: Summary Hospital Course Hospital Course: This is a 48-year-old female with history of hypothyroidism, chronic back pain, restless leg syndrome, lymphedema, and cellulitis who presented to the emergency department via EMS from home for evaluation of weakness. she was so weak in the morning when she got up that she instead came to the the ED for evaluation. She does not have any specific complaints aside from generalized malaise and weakness. On exam she was noted to have swelling, redness, and warmth of the medial left leg suspicious for superficial thrombosis or cellulitis. The following med issues have been addressed during hospitalization community-acquired pneumonia, suspecting sepsis She meets sepsis criteria with tachycardia, elevated bilirubin, and hypotension in the setting of infection. She received 3 L normal saline fluid bolus with normalization of her blood pressures. Lactic acid level is within normal limits. Blood cultures does not have bacterial growth Chest x-ray shows right lower lobe pneumonia started on levofloxacin (she reports an allergy to ceftriaxone). Gram-positive cocci in sputum for culture, Legionella pneumococcal antigens as well as mycoplasma IgM, pending Change Levaquin p.o. Patient is afebrile, leukocytosis resolved, blood pressure stable, sepsis resolved Left lower extremity cellulitis Received vancomycin. Soft tissue and venous Doppler ultrasounds:No deep venous thrombosis within the left common femoral, profunda femoral and femoral veins MRSA negative Changed to doxycycline Mild elevated liver enzymes Patient reports that her LFTs are always elevated Denies abdominal pain right upper quadrant ultrasound: Fatty infiltration of an enlarged liver. Postoperative dilatation of the common bile duct, not unexpected, as detailed above Anemia Hemoglobin drops a permission, possible due to dilution No obvious bleeding Follow-up CBC Acquired hypothyroidism Continue Synthroid 75 mcg daily p.o. Venous stasis She is on furosemide for swelling which will be held. Discharge patient today Time Spent with Patient Time attestation: Total time spent providing and/or coordinating discharge services: Exam Narrative: GENERAL: Pleasant, in no acute distress. Well-nourished. - EYES: EOMI. Anicteric. - HENT: Moist mucous membranes. - LUNGS: Clear to auscultation bilaterally, no wheezing, rhonchi, or rales. - CARDIOVASCULAR: Regular rate and rhythm. No murmur. No JVD. - ABDOMEN: Soft, non-tender and non-distended. No palpable masses. - EXTREMITIES: No edema. Peripheral pulses 2+. Non-tender. - NEUROLOGIC: No focal neurological deficits. CN II-XII grossly intact. - PSYCHIATRIC: Awake, Alert and oriented x 3. Appropriate mood and affect. - SKIN: No rashes or lesions. Warm. - LYMPH: No cervical lymphadenopathy. DS: Data Data Completed and Pending Labs on day of discharge: Preliminary micro results at discharge 09/25/24 09:45 Sputum Culture - Preliminary Sputum 09/24/24 15:21 Blood Culture - Preliminary Blood 09/24/24 14:57 Blood Culture - Preliminary Blood Discharge Plan Discharge Attending physician on discharge: Tyrell Jorge Discharging Clinician: Tyrell Jorge Anticipated Discharge Date/Time: 09/27/24 11:01 Patient Disposition: Home, Self-Care Activity: as tolerated Diet: as tolerated and heart healthy Patient Instructions: Antibiotic Form Patient Language: [place] Stand Alone Forms: General Discharge Information Follow-up/Referrals: Eduardo,Faith Henderson APRN [Non-Staff] - Discharge Medications: New doxycycline hyclate 100 mg tablet 100 mg PO Q12H Qty: 8 0RF levofloxacin 750 mg tablet 750 mg PO DAILY Qty: 4 0RF Continued pregabalin 200 mg capsule 200 mg PO TID hydrocodone-acetaminophen 10-325 mg tablet 1 tablet PO .Q8HR PRN (Reason: pain (scale score 7-10)) ropinirole 1 mg tablet 1 mg PO HS tizanidine 4 mg tablet 8 mg PO .Q8HR montelukast 10 mg tablet 10 mg PO DAILY fluticasone propionate 50 mcg/actuation spray,suspension 1 spray intranasal DAILY albuterol sulfate 90 mcg/actuation HFA aerosol inhaler 2 puff inhalation PRN PRN (Reason: WHEEZE) levothyroxine 75 mcg tablet 75 mcg PO DAILY furosemide 40 mg tablet 40 mg PO QAM desvenlafaxine succinate 100 mg tablet extended release 24 hr 100 mg PO DAILY varenicline tartrate [Chantix] 1 mg tablet 1 mg PO ONCE magnesium 30 mg tablet 30 mg PO DAILY nystatin [Nystop] 100,000 unit/gram powder 1 applic TOPICAL BID Patient Comments: skin folds multivitamin [Daily Multi-Vitamin] Tablet 1 tablet PO DAILY ascorbic acid (vitamin C) [C-500] 500 mg tablet 1 g PO DAILY acetaminophen 500 mg capsule 1,000 mg PO .Q4HR PRN (Reason: pain (scale score 1-3)) progesterone micronized [Prometrium] 200 mg capsule 200 mg PO QHS 90 Days Qty: 90 3RF Date of admission: 09/25/24 10:41 Primary Care Provider: EduardoFaith Admitting Provider: Debi Aggarwal Attending physician on admission: Tyrell Jorge Condition: Stable
[2024-09-27 11:34] VITALS: PULSE 84; RESP 20
[2024-09-27] MEDS: ALBUTEROL SULFATE (*SP) AEROSOL 1 PUFF 2 PUFF INHALATION (11:34)
[2024-09-27 11:39] VITALS: O2SAT 94
[2024-09-28 18:28] LABS: Pneumococcal Antigen Urine NOT DETECTED
[2024-09-29 19:09] LABS: Mycoplasma IgM Antibody Titer 503 U/mL
[2024-10-03 04:03] LABS: Legionella pneumophila Ag Ur NOT DETECTED
== END 2024-09-27 15:58 | disposition home or self-care (01) | DRG 194 ==
LOC: ANHED 13:54 → ANH3MEDSUR 15:35 → ANHIMU 21:01 → ANH3MEDSUR 09-26 18:08
PROVIDERS: Physician Assistant; Admitting Provider Internal Medicine; Emergency Provider Emergency Medicine; Visit Provider Hospitalist
DX: J18.9 Pneumonia, unspecified organism (principal); L03.116 Cellulitis of left lower limb; I89.0 Lymphedema, not elsewhere classified; I87.8 Other specified disorders of veins; N18.30 Chronic kidney disease, stage 3 unspecified; E03.9 Hypothyroidism, unspecified; M54.59 Other low back pain; G89.29 Other chronic pain; G25.81 Restless legs syndrome; R74.01 Elevation of levels of liver transaminase levels; R12 Heartburn; F41.9 Anxiety disorder, unspecified; Z79.82 Long term (current) use of aspirin; Z98.84 Bariatric surgery status; Z87.891 Personal history of nicotine dependence
CPT/HCPCS: 36415; 70450; 71045; 76705; 80053; 80074; 80307; 81001; 82077; 82550; 83605; 83735; 84439; 84443; 84480; 85025; 85055; 85610; 85730; 86140; 86738; 87040; 87070; 87205; 87449; 87637; 87641; 87899; 93005; 93971; 94640; 96361; 96365; 96366; 96367; 96372; 96376; 97116; 97162; 97165; 97530; 99212; 99285; A9270; G0378; G0463; J1650; J1956; J3370; J7030